=== PATIENT | female | born 1990 | race Caucasian/White ===

== ENCOUNTER 2019-12-04 00:12 | Emergency (ER) | payer SELFPAY ==
[2019-12-04 00:21] VITALS: BP 112/84; PULSE 85; RESP 16; TEMP 36.9; O2SAT 96; BMI 20.5
--- NOTE | 2019-12-04 00:36 | ED_ITS ---
HPI - Headache General: Chief Complaint: Headache Stated Complaint: MIGRAINE Time Seen by Provider: 12/04/19 00:22 History of Present Illness: HPI Narrative: Patient with history of migraine that started his morning. Patient used to have migraines quite often but is been a few years. She had been on propanolol to prevent migraines. She does not take that medication anymore. He is on methadone daily. MD elicited complaint: migraine Pertinent past history: migraines Onset (ago): day(s) Onset description: gradually Location: diffuse Severity: moderate Quality & Timing: aching Exacerbating factors: light and noise Relieving factors: dark room Context: occurred at rest Associated symptoms: Reports nausea and photophobia; Deny chest pain, fever(s) or rash Review of Systems Const: Denies: fever, chills or body aches Eyes: Denies: change in vision or blurry vision ENMT: Denies: throat pain or nasal congestion Card: Denies: chest pain or shortness of breath on exertion Resp: Denies: shortness of breath, productive cough or non-productive cough GI: Reports: nausea Musc: Denies: extremity pain Skin/Breast: Denies: rash Neuro: Reports: headache Psych: Denies: anxiety or depression Mitchel/Lymph: Denies: easy bruising PFSH ED PFSH: Social History Smoking and tobacco status: current every day smoker Female Reproductive History: Date of last menstrual period: 11/06/19 Physical Exam Const: COMMON NORMALS: no apparent distress, average body habitus and oriented x3 HENMT: COMMON NORMALS: normocephalic HEAD & SCALP: normal to inspection and normocephalic FACE & SINUS: normal facial exam Eye: COMMON NORMALS: conjunctivae normal GENERAL EYE: normal appearance of both eyes CONJUNCTIVA: Yes conjunctivae normal DIRECT OPHTHALMOSCOPY: Yes photophobia Neck/C-Spine: COMMON NORMALS: no JVD Chest: COMMONS NORMALS: inspection of chest normal Resp: COMMON NORMALS: normal respiratory effort and clear to auscultation bilaterally AUSCULTATION: clear to auscultation bilaterally Cardio: COMMON NORMALS: no JVD, regular rate and regular rhythm RATE: regular rate RHYTHM: regular rhythm GI: COMMON NORMALS: normal to inspection, nondistended, normoactive bowel sounds Extremity: COMMON NORMALS: normal to inspection and full ROM Neuro: COMMON NORMALS: oriented x3 Course Vital Signs: Vital signs: Vital Signs Temperature 98.4 F 12/04/19 00:21 Pulse Rate 85 12/04/19 00:21 Respiratory Rate 16 12/04/19 00:21 Blood Pressure 112/84 12/04/19 00:21 Pulse Oximetry 96 12/04/19 00:21 MDM - Headache MDM Narrative: Medical decision making narrative: Patient is much better after injections ready go home Discharge Plan Discharge Patient Disposition: Home, Self-Care Clinical Impression: Migraine Qualifiers: Migraine type: without aura Status migrainosus presence: without status migrainosus Intractability: intractable Qualified Code(s): G43.019 - Migraine without aura, intractable, without status migrainosus Condition: Stable Prescriptions: New Imitrex 50 mg tablet See Rx Instructions .ROUTE .COMPLEX Qty: 9 RF: 0 No Action methadone 10 mg/5 mL Solution 20 mg PO Q6H RF: 0 Discharge Orders: Discharge Order (Routine); Ordered 12/04/19 Ordered By: Raul Mehta Referrals: KATINA Villagran, CASH MANAGEMENT ASSOCIATE [Primary Care Provider] - Discharge Diet: Usual diet Discharge Activity: Increase activity as tolerated Patient Instructions: Migraine Headache (ED) Activity Restrictions/Additional Instructions: Follow-up with medical provider as directed. Take medications as prescribed. Return to the ER or your medical provider if condition worsens. Please read and understand discharge instructions. If any questions ask please. Coding Level of Care Code ED Director Of Financial Aid for Kalee Fwd Exam Comprehensive
[2019-12-04] MEDS: SUMAtriptan 6 mg/0.5 mL SDV SUBCUT (00:51)
[2019-12-04] MEDS: promethazine 25 mg/mL SDV 1 mL IM (00:51)
[2019-12-04 01:34] VITALS: BP 132/78; PULSE 68; RESP 16; O2SAT 99
== END 2019-12-04 01:35 | disposition home or self-care (01) ==
PROVIDERS: Emergency Provider Nurse Practitioner Family; PCP Nurse Practitioner Family
DX: G43.019 Migraine without aura, intractable, without status migrainosus (principal); F17.200 Nicotine dependence, unspecified, uncomplicated
CPT/HCPCS: 12345; 96372; 99281; 99283; J2550; J3030

== ENCOUNTER 2020-08-16 15:12 | Emergency (ER) | payer SELFPAY ==
[2020-08-16 15:19] VITALS: BP 157/89; PULSE 82; RESP 16; TEMP 36.4; O2SAT 98; BMI 21.0
--- NOTE | 2020-08-16 16:11 | ED_ITS ---
HPI - Headache General: Chief Complaint: Headache Stated Complaint: Bad Migrain Time Seen by Provider: 08/16/20 15:30 History of Present Illness: HPI Narrative: 21-year-old female presents emergency room with complaint of a migraine. Similar nature to what she has had in the past it is just much more intense. She has used Imitrex in the past with good relief she does not have any now she took some [id number] analgesics with no significant improvement. She has had nausea and photophobia with it MD elicited complaint: migraine Onset (ago): hour(s) Onset description: gradually Location: left Severity: severe Quality & Timing: throbbing Exacerbating factors: light and noise Relieving factors: rest and dark room Context: occurred at rest Associated symptoms: Reports nausea and photophobia; Deny chest pain, confusion, cough, diaphoresis, eye pain, eye redness, fever(s), lightheadedness, loss of vision, malaise, neck stiffness, numbness, paresthesias, pre-syncope, rash, seizures, short of breath, sound sensitivity, syncope, vomiting or weakness Treatments prior to arrival: ibuprofen Review of Systems Const: Denies: fever(s), malaise or diaphoresis ENMT: Denies: throat pain, ear or mastoid pain, nasal discharge or nasal congestion Card: Denies: chest pain, lightheadedness, syncope or pre-syncope Resp: Denies: dyspnea, productive cough or non-productive cough GI: Reports: nausea; Denies: vomiting : Denies: flank pain, difficulty voiding, dysuria, urinary frequency or urinary urgency Skin/Breast: Denies: rash Neuro: Denies: confusion PFS ED PFSH: Social History Smoking and tobacco status: current every day smoker Female Reproductive History: Date of last menstrual period: 08/16/20 Physical Exam Const: COMMON NORMALS: no acute distress GENERAL APPEARANCE: cooperative and comfortable ORIENTATION/CONSCIOUSNESS: Yes awake, Yes oriented to person, Yes oriented to place and Yes oriented to time HENMT: COMMON NORMALS: normocephalic, atraumatic, hearing grossly normal bilaterally, external ears normal, EAC's normal, TM's normal bilaterally, Normal nasal mucous membranes and turbinates present, moist oral mucous membranes and oropharynx normal HEAD & SCALP: normocephalic and atraumatic NOSE: Normal nasal mucous membranes and turbinates present EXTERNAL EAR: Yes external ears normal EXTERNAL AUDITORY CANAL: EAC's normal TYMPANIC MEMBRANE: TM's normal bilaterally Eye: COMMON NORMALS: Equal, round and reactive pupils present, EOMs intact bilaterally, conjunctivae normal and no scleral icterus CONJUNCTIVA: Yes conjunctivae normal PUPIL: Yes Equal, round and reactive pupils present DIRECT OPHTHALMOSCOPY: Yes photophobia Neck/C-Spine: COMMON NORMALS: full ROM, no lymphadenopathy, supple and no JVD Lymph: LYMPHATIC: no lymphadenopathy noted and no lymphedema noted Resp: COMMON NORMALS: normal respiratory effort, No retractions, No use of accessory muscles and clear to auscultation bilaterally AUSCULTATION: clear to auscultation bilaterally Cardio: COMMON NORMALS: no JVD, regular rate, regular rhythm and No murmurs present (Cardio) RATE: regular rate RHYTHM: regular rhythm GI: COMMON NORMALS: Soft to palpation and No hepatosplenomegaly present AUSCULTATION: Yes normoactive bowel sounds PALPATION: Yes Soft to palpation, No Tenderness to palpation present (GI), No Guarding due to palpation present (GI) and Yes No hepatosplenomegaly present Extremity: COMMON NORMALS: normal to inspection, capillary refill normal, no clubbing, cyanosis or edema, no calf tenderness and no pedal edema Neuro: SENSORIUM/ORIENTATION: Yes oriented to person, Yes oriented to place and Yes oriented to time Skin: COMMON NORMALS: no rashes or lesions noted GENERAL SKIN EXAM: no rashes or lesions noted Course Vital Signs: Vital signs: Vital Signs Temperature 97.5 F L 08/16/20 15:19 Pulse Rate 82 08/16/20 15:19 Respiratory Rate 16 08/16/20 15:19 Blood Pressure 157/89 08/16/20 15:19 Pulse Oximetry 98 08/16/20 15:19 MDM - Headache MDM Narrative: Medical decision making narrative: Patient responded to medications given is feeling much better will discharge home gave her Phenergan to use as needed if she has any recurrence of migraine she can return to the emergency room she has no relief or has worsening problems. Discharge Plan Discharge Patient Disposition: Home Clinical Impression: Migraine Condition: Stable Prescriptions: New promethazine 25 mg tablet 25 mg PO Q6H PRN (Reason: prn headaches) Qty: 20 RF: 0 No Action methadone 10 mg Tablet 20 mg PO DAILY@05 RF: 0 ibuprofen 200 mg Tablet 800 mg PO PRN RF: 0 Discharge Orders: Discharge ED (Routine); Ordered 08/16/20 Ordered By: Malcolm Chu Referrals: KATINA Villagran, BRIAR CUTTER [Primary Care Provider] - Discharge Diet: Usual diet Discharge Activity: Increase activity as tolerated Coding Level of Care Code ED Exceptional Student Education Teacher for Kalee Lopez
[2020-08-16] MEDS: promethazine 25 mg/mL SDV 1 mL IM (16:20)
[2020-08-16] MEDS: sodium chloride 0.9% 1,000 ML 999 ML IV (16:20)
[2020-08-16] MEDS: valproic acid inj 500 MG in sodium chloride 0.9% 50 ML 55 MG IV (16:25)
[2020-08-16] MEDS: ketorolac 30 mg/mL INJ IVP (16:25)
[2020-08-16 17:40] VITALS: BP 113/76; PULSE 59; RESP 16; O2SAT 97
== END 2020-08-16 17:51 | disposition home or self-care (01) ==
PROVIDERS: Emergency Provider Family Medicine; PCP Nurse Practitioner Family
DX: G43.909 Migraine, unspecified, not intractable, without status migrainosus (principal); F17.210 Nicotine dependence, cigarettes, uncomplicated
CPT/HCPCS: 12345; 96361; 96365; 96372; 96375; 99282; 99283; J1885; J2550; J7030

== ENCOUNTER 2021-02-07 21:15 | Emergency (ER) | payer SELFPAY ==
[2021-02-07 21:40] VITALS: PULSE 67; RESP 16; TEMP 36.6; O2SAT 95; BMI 21.9
--- NOTE | 2021-02-07 22:04 | W.ED.HA ---
HPI - Headache General: Chief Complaint: Headache Stated Complaint: migraine Time Seen by Provider: 02/07/21 22:00 Source: patient Mode of arrival: ambulatory Limitations: no limitations History of Present Illness: HPI Narrative: 15-year-old female has a long history of migraines. She states she has had a migraine headache that began gradually last night and got much worse today. States headache is currently 9 out of 10. She has had nausea with it. States is worse with bright lights and loud sounds improved in a dark room. This feels just like her previous migraines. Associated symptoms: Deny chest pain, fever(s), nausea, rash or vomiting Review of Systems Const: Denies: fever(s), chills, body aches or change in appetite Eyes: Denies: blurry vision or eye discomfort ENMT: Denies: throat pain or dental pain Card: Denies: chest pain Resp: Denies: dyspnea GI: Denies: abdominal pain, nausea, vomiting or diarrhea : Denies: dysuria Musc: Denies: neck pain or back pain Skin/Breast: Denies: rash Neuro: Reports: headache(s) Psych: Denies: depression Mitchel/Lymph: Denies: easy bruising All/Imm: Denies: urticaria PFSH ED PFSH: Social History Smoking and tobacco status: current every day smoker Female Reproductive History: Date of last menstrual period: 10/11/20 Physical Exam Const: COMMON NORMALS: no acute distress, patient oriented x3 and healthy appearing HENMT: COMMON NORMALS: normocephalic and atraumatic HEAD & SCALP: normocephalic and atraumatic Eye: COMMON NORMALS: Equal, round and reactive pupils present and EOMs intact bilaterally PUPIL: Yes Equal, round and reactive pupils present Neck/C-Spine: COMMON NORMALS: full ROM and supple Chest: COMMONS NORMALS: normal inspection of the chest and normal palpation of entire chest wall Resp: COMMON NORMALS: normal respiratory effort, No retractions, No use of accessory muscles and clear to auscultation bilaterally AUSCULTATION: clear to auscultation bilaterally Cardio: COMMON NORMALS: regular rate, regular rhythm and No murmurs present (Cardio) RATE: regular rate RHYTHM: regular rhythm GI: COMMON NORMALS: Normal to inspection, nondistended, normoactive bowel sounds present, Soft to palpation, non-tender and no masses PALPATION: Yes Soft to palpation Extremity: COMMON NORMALS: normal to inspection and full ROM Neuro: COMMON NORMALS: patient oriented x3, moves all extremities and no focal motor deficits Psych: COMMON NORMALS: mental status grossly normal, Normal thought process present and cooperative THOUGHT PROCESS: Normal thought process present Skin: COMMON NORMALS: no rashes or lesions noted and no wounds GENERAL SKIN EXAM: no rashes or lesions noted Course Vital Signs: Vital signs: Vital Signs Temperature 97.8 F 02/07/21 21:40 Pulse Rate 67 02/07/21 21:40 Respiratory Rate 16 02/07/21 21:40 Pulse Oximetry 95 02/07/21 21:40 MDM - Headache MDM Narrative: Medical decision making narrative: Patient presents here with a migraine headache. Headache is resolved after IV meds. She has no signs of subarachnoid hemorrhage or meningitis. She is stable for discharge and is to follow-up with PCP and return if worsening. Discharge Plan Discharge Patient Disposition: Home Clinical Impression: Migraine Qualifiers: Migraine type: unspecified Status migrainosus presence: without status migrainosus Intractability: not intractable Qualified Code(s): G43.909 - Migraine, unspecified, not intractable, without status migrainosus Condition: Stable Prescriptions: No Action methadone 10 mg Tablet 20 mg PO DAILY@05 RF: 0 ibuprofen 200 mg Tablet 800 mg PO PRN RF: 0 promethazine 25 mg tablet 25 mg PO Q6H PRN (Reason: prn headaches) Qty: 20 RF: 0 Discharge Orders: Discharge ED (Routine); Ordered 02/07/21 Ordered By: Janet Grover Discharge Diet: Advance as tolerated Discharge Activity: Resume usual activity Patient Instructions: Migraine Headache (ED) Coding Level of Care Code ED Plasma Processing Technician for Tedg Fwd Exam Comprehensive
[2021-02-07] MEDS: ketorolac 30 mg/mL INJ IVP (23:04)
[2021-02-07] MEDS: diphenhydrAMINE 50 mg/mL SDV 1mL IVP (23:05)
[2021-02-07] MEDS: metoclopramide 5 mg/mL SDV 2 mL 10 MG IVP (23:05)
[2021-02-08 00:37] VITALS: BP 101/68; PULSE 78; RESP 18; O2SAT 98
== END 2021-02-08 00:39 | disposition home or self-care (01) ==
PROVIDERS: Emergency Provider Emergency Medicine
DX: G43.909 Migraine, unspecified, not intractable, without status migrainosus (principal); F17.210 Nicotine dependence, cigarettes, uncomplicated
CPT/HCPCS: 96374; 96375; 99283; J1200; J1885; J2765

== ENCOUNTER 2021-04-12 11:29 | Emergency (ER) | payer SELFPAY ==
[2021-04-12 11:57] VITALS: BP 114/73; PULSE 62; RESP 17; TEMP 36.9; O2SAT 96
--- NOTE | 2021-04-12 12:14 | W.ED.HA ---
HPI - Headache General: Chief Complaint: Headache Stated Complaint: SEVERE MIGRAINE Time Seen by Provider: 04/12/21 12:12 Source: patient Mode of arrival: ambulatory Limitations: no limitations History of Present Illness: HPI Narrative: Headache x 4 days (hx of migraines) MD elicited complaint: headache Onset description: gradually Location: generalized Severity: similar to previous episodes Quality & Timing: aching Review of Systems General: Reports: 10 or more systems reviewed and unremarkable except in HPI and below Eyes: Reports: photophobia; Denies: change in vision or blurry vision Neuro: Reports: headache(s); Denies: dizziness PFSH ED PFSH: Social History Smoking and tobacco status: current every day smoker Female Reproductive History: Date of last menstrual period: 03/24/21 Physical Exam Const: COMMON NORMALS: no acute distress, patient oriented x3, no limitations and alert GENERAL APPEARANCE: cooperative and comfortable ORIENTATION/CONSCIOUSNESS: Yes awake, Yes oriented to person, Yes oriented to place and Yes oriented to time HENMT: COMMON NORMALS: normocephalic, atraumatic, external ears normal, EAC's normal, TM's normal bilaterally and Normal external nose present HEAD & SCALP: normal to inspection, normocephalic and atraumatic FACE & SINUS: normal facial exam, sinuses nontender and face symmetric NOSE: Normal external nose present, Normal nares present and No nasal discharge present EXTERNAL EAR: Yes external ears normal EXTERNAL AUDITORY CANAL: EAC's normal TYMPANIC MEMBRANE: TM's normal bilaterally MOUTH: Normal oral and palatal mucosa present, lip normal and tongue normal THROAT: posterior oropharynx normal, tonsils normal and uvula midline Eye: COMMON NORMALS: Equal, round and reactive pupils present, EOMs intact bilaterally and conjunctivae normal GENERAL EYE: appearance normal, both eyes and all related structures and normal light reflex EYELID: eyelids normal CONJUNCTIVA: Yes conjunctivae normal PUPIL: Yes Equal, round and reactive pupils present EOM: Yes EOM abnormal DIRECT OPHTHALMOSCOPY: Yes normal light reflex Neck/C-Spine: COMMON NORMALS: full ROM, no lymphadenopathy, supple, no meningeal signs, no JVD and Thyroid normal GENERAL: Yes normal visual inspection THYROID: Thyroid normal CERVICAL SPINE: Yes cervical ROM normal and Yes normal cervical lordosis Lymph: LYMPHATIC: no lymphadenopathy noted Chest: COMMONS NORMALS: normal inspection of the chest and normal palpation of entire chest wall Resp: COMMON NORMALS: normal respiratory effort, No retractions and clear to auscultation bilaterally AUSCULTATION: clear to auscultation bilaterally Cardio: COMMON NORMALS: no JVD, regular rate, regular rhythm, S1 normal heart sound present, S2 normal heart sound present, No gallops present (Cardio), No clicks present (Cardio), No murmurs present (Cardio), No rub (Cardio) and Peripheral pulses 2+ throughout RATE: regular rate RHYTHM: regular rhythm HEART SOUNDS: S1 normal heart sound present and S2 normal heart sound present PERIPHERAL PULSES: Peripheral pulses 2+ throughout GI: COMMON NORMALS: Normal to inspection, nondistended, normoactive bowel sounds present, Soft to palpation, non-tender and no masses PALPATION: Yes Soft to palpation : COMMON NORMALS: Yes no CVA tenderness and Yes normal external appearance BLADDER/KIDNEY EXAM: Yes no CVA tenderness Back/Pelvis: COMMON NORMALS: no CVA tenderness, thoracic and lumbar spine normal to inspection, no thoracic nor lumbar tenderness and thoraco-lumbar ROM normal Extremity: COMMON NORMALS: normal to inspection, full ROM, capillary refill normal, no joint enlargement, no clubbing, cyanosis or edema, no calf tenderness and no pedal edema GENERAL: Yes normal exam except as noted Neuro: COMMON NORMALS: patient oriented x3, moves all extremities, no focal motor deficits, no sensory deficits noted and gait normal SENSORIUM/ORIENTATION: Yes alert, Yes oriented to person, Yes oriented to place and Yes oriented to time MENINGEAL SIGNS: Yes no meningeal signs Psych: COMMON NORMALS: mental status grossly normal, Normal thought process present, cooperative, normal affect, speech normal and activity/motor behavior normal SPEECH: Yes normal speech THOUGHT PROCESS: Normal thought process present Skin: COMMON NORMALS: no rashes or lesions noted, no wounds and turgor normal GENERAL SKIN EXAM: no rashes or lesions noted and turgor normal Course ED course: Pt presents with CENT[place] for the past 4 days. She has a hx of migraines and this feels similar. We will proceed to migraine cocktail. Reevaluation(s): Reevaluation #1: Pt is feeling better. We will proceed with DC. Imitrex will be given script as prophylaxis until she can reestablish a neurologist. Time: 14:01 Vital Signs: Vital signs: Vital Signs Temperature 98.5 F 04/12/21 11:57 Pulse Rate 62 04/12/21 11:57 Respiratory Rate 17 04/12/21 11:57 Blood Pressure 114/73 04/12/21 11:57 Pulse Oximetry 96 04/12/21 11:57 Discharge Plan Discharge Condition: Stable Prescriptions: New sumatriptan succinate [Imitrex] 50 mg tablet 50 mg PO Q2H PRN (Reason: migraine headache) Qty: 20 RF: 0 No Action methadone 10 mg Tablet 20 mg PO DAILY@05 RF: 0 ibuprofen 200 mg Tablet 800 mg PO PRN RF: 0 promethazine 25 mg tablet 25 mg PO Q6H PRN (Reason: prn headaches) Qty: 20 RF: 0 Discharge Orders: Discharge ED (Routine); Ordered 04/12/21 Ordered By: Ankita Anderson Referrals: Tootie Perez MD [Physician] - Discharge Diet: Advance as tolerated Discharge Activity: Resume usual activity Coding Level of Care Code ED Crater And Packer for Chg Fwd Exam Comprehensive
[2021-04-12] MEDS: diphenhydrAMINE 50 mg/mL SDV 1mL 25 MG IVP (12:32)
[2021-04-12] MEDS: dexamethasone 10 mg/mL INJ 6 MG IVP (12:32)
[2021-04-12] MEDS: ondansetron 2 mg/ML SDV 2 mL 4 MG IVP (12:32)
[2021-04-12] MEDS: ketorolac 30 mg/mL INJ 15 MG IVP (12:32)
[2021-04-12] MEDS: sodium chloride 0.9% 500 ML 999 ML IV (12:33)
[2021-04-12 14:15] VITALS: BP 103/62; PULSE 63; O2SAT 94
== END 2021-04-12 14:18 | disposition home or self-care (01) ==
PROVIDERS: Emergency Provider Nurse Practitioner Family
DX: R51.9 Headache, unspecified (principal); Z79.891 Long term (current) use of opiate analgesic; F17.210 Nicotine dependence, cigarettes, uncomplicated
CPT/HCPCS: 96374; 96375; 99283; J1100; J1200; J1885; J2405; J7040

== ENCOUNTER 2021-05-28 04:02 | Emergency (ER) | payer SELFPAY ==
[2021-05-28 04:10] VITALS: BP 124/84; PULSE 74; RESP 16; TEMP 36.9; O2SAT 95; BMI 22.1
[2021-05-28 04:25] VITALS: BP 124/84; PULSE 92; RESP 18; O2SAT 98
--- NOTE | 2021-05-28 04:44 | ED_ITS ---
HPI - General Adult General: Chief complaint: Headache Stated complaint: Migraine Time Seen by Provider: 05/28/21 04:16 History of Present Illness: HPI narrative: HPI: [30]yo patient w hx of migraine headache presenting to the ED with new onset of headache x 2 days. Describes the headache as pulsatile or cramping. Patient reports headache was gradual in onset over 2 hrs and has since been intermittent unremitting and worsening. Headache associated with +N/+V, photophobia, generalized weakness, and inability to concentrate on tasks. Denies fever/chill, hx of immunocompromise, HIV, or transplant. The patient denies any focal neurological weakness, vision blindness, diplopia, or eye pain, hoarseness of voice or facial weakness. The patient has had decreased PO intake since the onset of headache symptoms. No family hx of subarachnoid hemorrhage. Denies recent trauma to the head. Pain is unrelieved with OTC medication, ibuprofen or Tylenol. Per chart review, the patient has had multiple prior ED visits for headache. No complaints of chest pain, shortness of breath, palpitations, light- headedness/vertigo/syncope, abdominal pain, or complaints today. Onset: 2days ago Duration: ongoing Location: home Severity: moderate Review of Systems Narrative: Constitutional: No fever, no chills. HEENT: +blurriness of vision CV: No chest pain, no palpitations PULM: No productive cough, no dyspnea. GI: No abdominal pain, +N/+V/-D. : No Dysuria MSKEL: No muscle pain SKIN: No new rashes, no lesions. NEURO: + headache, no focal weakness. HEME: No visible bruises PSYCH: Normal mood PFSH ED PFSH: Social History Smoking and tobacco status: current every day smoker Female Reproductive History: Date of last menstrual period: 03/24/21 Physical Exam Narrative: EXAM NARRATIVE: Head: Atraumatic Eyes: PERRL, conjunctiva without injection, eyes tracking ENT: Mucous membrane moist NECK: Supple without lymphadenopathy, no nuchal rigidity LUNGS: LCTAB CV: RRR ABDOMEN: Soft, nontender in all quadrants, no guarding or rebound tenderness, no CVA or flank tenderness bilaterally EXTREMITY: Normal ROM SKIN: No rash or erythema through the whole body NEURO: Mental status: A/Ox3 CN II-XII tested and intact. Sensation intact to sharp/dull differentiation in all extremities. Motor: Normal tone and bulk. No abnormal movements appreciated. No pronator drift. Strength tested and 5/5 in bilateral wrist flexion/extension, elbow flexion/extension, shoulder abduction, straight leg raise, knee flexion/extension, ankle dorsiflexion/plantarflexion. Patient ambulates with a steady gait. Coordination: Finger to nose and heel to jo testing intact bilaterally. PSYCH: Cooperative mood and affect Course Vital Signs: Vital signs: Vital Signs Temperature 98.4 F 05/28/21 04:10 Pulse Rate 63 05/28/21 05:49 Respiratory Rate 16 05/28/21 05:49 Blood Pressure 99/59 05/28/21 05:49 Pulse Oximetry 98 05/28/21 05:49 MDM - General Adult MDM Narrative: Medical decision making narrative: [30] yo w/ hx of migranepresents with moderate to severe headache. -Fever, +Nausea/+Vomiting, -Neck pain. -Trauma. Afebrile, HDS stable. No focal neurological symptoms. Neuro exam is non-focal. Pt is nontoxic. Based on history and normal neurological exam I do not suspect for intracranial tumor, intracranial bleed, subdural/epidural hematoma, meningitis or intracranial abscess, encephalopathy or encephalitis, temporal arteritis, glaucoma, CO poisoning. Presentation most likely benign headache. Intervention today: IVF 1L, Reglan 5mg, Benadryl 50mg IV, and Magnesium Sulfate 2g IV, and Prednisone 50mg PO [5:45pm] On reassessment, the patient reports the headache is symptomatically improved with treatment. Neuro exam intact. Patient is able to ambulate and tolerate PO in the ED. Rx: Tylenol and reglan PRN headache Disposition: Discharge home with strict return precautions and instructions for prompt primary care follow up. Given referral for Neurology should any headache recur. Given return instructions for any focal deficit, fever/chill, neck pain or any new or concerning symptoms. Discharge Plan Discharge Patient Disposition: Home Clinical Impression: Migraine, Migraine Condition: Stable Prescriptions: New acetaminophen 500 mg tablet 500 mg PO Q6H PRN (Reason: headache) 5 Days Qty: 20 RF: 0 Reglan 5 mg tablet 5 mg PO DAILY PRN (Reason: nausea and vomiting) 5 Days Qty: 5 RF: 0 No Action methadone 10 mg Tablet 20 mg PO DAILY@05 RF: 0 ibuprofen 200 mg Tablet 800 mg PO PRN RF: 0 promethazine 25 mg tablet 25 mg PO Q6H PRN (Reason: prn headaches) Qty: 20 RF: 0 Imitrex 50 mg tablet 50 mg PO Q2H PRN (Reason: migraine headache) Qty: 20 RF: 0 Discharge Orders: Discharge ED (Routine); Ordered 05/28/21 Ordered By: Chapo Alcantara Discharge Diet: Advance as tolerated Discharge Activity: Resume usual activity Patient Instructions: Headache - Migraine (Adult) Activity Restrictions/Additional Instructions: Come back to the emergency room you have any worsening headache, fever/chills, focal weakness, or any new or concerning complaints. Stand Alone Forms: Work/School Release Coding Level of Care Code ED Manager Animation for Kalee Lopez
[2021-05-28] MEDS: metoclopramide 5 mg/mL SDV 2 mL 10 MG IVP (04:53)
[2021-05-28] MEDS: magnesium sulfate premix 2 GM/50 ML PIGGYBACK IV (04:53)
[2021-05-28] MEDS: acetaminophen 500 mg Tablet PO (04:58)
[2021-05-28] MEDS: sodium chloride 0.9% 1,000 ML 999 ML IV (04:59)
[2021-05-28] MEDS: ketorolac 30 mg/mL INJ IVP (05:17)
[2021-05-28] MEDS: diphenhydrAMINE 50 mg/mL SDV 1mL IVP (05:18)
[2021-05-28] MEDS: predniSONE 20 mg Tablet 60 MG PO (05:18)
[2021-05-28 05:49] VITALS: BP 99/59; PULSE 63; RESP 16; O2SAT 98
== END 2021-05-28 05:52 | disposition home or self-care (01) ==
PROVIDERS: Emergency Provider Emergency Medicine
DX: G43.909 Migraine, unspecified, not intractable, without status migrainosus (principal); Z79.891 Long term (current) use of opiate analgesic; F17.210 Nicotine dependence, cigarettes, uncomplicated
CPT/HCPCS: 96365; 96375; 99283; J1200; J1885; J2765; J3475; J7030; J7512

== ENCOUNTER 2021-08-02 17:50 | Emergency (ER) | payer SELFPAY ==
[2021-08-02 18:22] VITALS: BP 141/70; PULSE 88; RESP 20; TEMP 36.4; O2SAT 100; BMI 21.0
--- NOTE | 2021-08-02 19:16 | W.ED.HA ---
HPI - Headache General: Chief Complaint: Headache Stated Complaint: MIGRAINE, KNOT IN NECK Time Seen by Provider: 08/02/21 18:29 History of Present Illness: HPI Narrative: Patient is a 30 y/o female comes to the ED with migraine. Symptoms started today. Patient has a history of migraines and says this migraine is just like her past migraines. She has currently run out of her Imitrex and is waiting first her Medicaid to go through for her to get a refill on her prescription for Imitrex. She rates her migraine 9 out of 10 and says is located in the frontal part of her head. She endorses having some nausea and vomiting and photophobia today. Denies any neurological symptoms such as vision changes, numbness/tingling to face or extremities or weakness to 1 side of her body. MD elicited complaint: migraine Associated symptoms: Reports nausea and vomiting; Deny chest pain, fever(s) or rash Review of Systems Const: Denies: fever(s), chills or fatigue Eyes: Reports: photophobia; Denies: change in vision or eye discomfort ENMT: Denies: throat pain, odynophagia, nasal discharge or nasal congestion Card: Denies: chest pain, palpitations, edema, swelling of feet/ankles, dyspnea on exertion or orthopnea Resp: Denies: dyspnea, productive cough or non-productive cough GI: Reports: nausea and vomiting; Denies: abdominal pain, diarrhea, constipation or hematochezia : Denies: flank pain, dysuria or hematuria Musc: Denies: neck pain, back pain or extremity swelling Skin/Breast: Denies: rash or new lesions Neuro: Reports: headache(s); Denies: numbness in extremities or weakness in extremities PFSH ED PFSH: Social History Smoking and tobacco status: current every day smoker Female Reproductive History: Date of last menstrual period: 07/18/21 Physical Exam Const: COMMON NORMALS: no acute distress, patient oriented x3, healthy appearing and alert GENERAL APPEARANCE: cooperative and comfortable HENMT: COMMON NORMALS: normocephalic HEAD & SCALP: normocephalic MOUTH: Normal oral and palatal mucosa present THROAT: posterior oropharynx normal and uvula midline Eye: COMMON NORMALS: Equal, round and reactive pupils present, EOMs intact bilaterally and conjunctivae normal CONJUNCTIVA: Yes conjunctivae normal PUPIL: Yes Equal, round and reactive pupils present Neck/C-Spine: COMMON NORMALS: supple GENERAL: Yes normal visual inspection Resp: COMMON NORMALS: normal respiratory effort, No retractions, No use of accessory muscles and clear to auscultation bilaterally AUSCULTATION: clear to auscultation bilaterally Cardio: COMMON NORMALS: regular rate, regular rhythm, S1 normal heart sound present, S2 normal heart sound present, No gallops present (Cardio), No clicks present (Cardio), No murmurs present (Cardio) and Peripheral pulses 2+ throughout RATE: regular rate RHYTHM: regular rhythm HEART SOUNDS: S1 normal heart sound present and S2 normal heart sound present PERIPHERAL PULSES: Peripheral pulses 2+ throughout GI: COMMON NORMALS: Normal to inspection, nondistended, normoactive bowel sounds present, Soft to palpation, non-tender and no masses PALPATION: Yes Soft to palpation : COMMON NORMALS: Yes no CVA tenderness BLADDER/KIDNEY EXAM: Yes no CVA tenderness Back/Pelvis: COMMON NORMALS: no CVA tenderness Extremity: COMMON NORMALS: normal to inspection Neuro: COMMON NORMALS: patient oriented x3, CN's II-XII intact bilaterally and moves all extremities SENSORIUM/ORIENTATION: Yes alert SPEECH: speech normal Skin: GENERAL SKIN EXAM: dry skin Course Reevaluation(s): Reevaluation #1: After patient received IV migraine cocktail her migraine improved from a 9 to a 4 out of 10. Patient says she feels a lot better and ready to go home and rest. Time: 20:25 Vital Signs: Vital signs: Vital Signs Temperature 97.5 F L 08/02/21 18:22 Pulse Rate 88 08/02/21 18:22 Respiratory Rate 20 H 08/02/21 18:22 Blood Pressure 141/70 08/02/21 18:22 Pulse Oximetry 100 08/02/21 18:22 MDM - Headache MDM Narrative: Medical decision making narrative: Patient is a 30-year-old female comes to the ED with a migraine. Patient has chronic migraines and says this migraine is similar to all her previous ones. She is got photophobia, nausea vomiting and she rates her migraine 9 out of 10. Vital stable and exam is benign. IV fluids, Toradol, Decadron, Reglan and Benadryl and her migraine greatly improved. After treatment she rates her migraine a 4 out of 10 is ready to go home and rest. Patient was diagnosed with a migraine discharged home with a prescription for Reglan as needed for nausea. Return to ED precautions given. Follow-up with PCP in 7 to 10 days reevaluation. Patient understood agree with plan. Discharge Plan Discharge Patient Disposition: Home Clinical Impression: Migraine Qualifiers: Migraine type: without aura Status migrainosus presence: without status migrainosus Intractability: not intractable Qualified Code(s): G43.009 - Migraine without aura, not intractable, without status migrainosus Condition: Stable Prescriptions: New Reglan 10 mg tablet 10 mg PO Q6H PRN (Reason: nausea and vomiting) Qty: 12 RF: 0 No Action methadone 10 mg Tablet 20 mg PO DAILY@05 RF: 0 ibuprofen 200 mg Tablet 800 mg PO PRN RF: 0 promethazine 25 mg tablet 25 mg PO Q6H PRN (Reason: prn headaches) Qty: 20 RF: 0 Imitrex 50 mg tablet 50 mg PO Q2H PRN (Reason: migraine headache) Qty: 20 RF: 0 Discharge Orders: Discharge ED (Routine); Ordered 08/02/21 Ordered By: Cedrick Aguilera Discharge Diet: Regular Discharge Activity: Resume usual activity Patient Instructions: Migraine Headache (ED) Coding Level of Care Code ED Telecommunications Sales Representative for Kalee Fwd Exam Comprehensive
[2021-08-02] MEDS: dexamethasone 10 mg/mL INJ IVP (19:38)
[2021-08-02] MEDS: sodium chloride 0.9% 1,000 ML 999 ML IV (19:38)
[2021-08-02] MEDS: metoclopramide 5 mg/mL SDV 2 mL 10 MG IVP (19:38)
[2021-08-02] MEDS: ketorolac 30 mg/mL INJ IVP (19:39)
[2021-08-02] MEDS: diphenhydrAMINE 50 mg/mL SDV 1mL 25 MG IVP (19:39)
== END 2021-08-02 20:37 | disposition home or self-care (01) ==
PROVIDERS: Emergency Provider Physician Assistant
DX: G43.009 Migraine without aura, not intractable, without status migrainosus (principal); F17.210 Nicotine dependence, cigarettes, uncomplicated
CPT/HCPCS: 96361; 96374; 96375; 99284; J1100; J1200; J1885; J2765; J7030

== ENCOUNTER 2021-08-30 23:40 | Emergency (ER) | payer SELFPAY ==
[2021-08-30 23:45] VITALS: BP 132/77; PULSE 72; RESP 16; TEMP 36.8; O2SAT 97; BMI 24.4
--- NOTE | 2021-08-30 23:59 | W.ED.DENTAL ---
HPI - Dental/Oral General: Chief complaint: Dental/Oral Stated complaint: pt said infected teeth Time Seen by Provider: 08/30/21 23:54 Source: patient Mode of arrival: ambulatory Limitations: no limitations History of Present Illness: HPI Narrative: Patient is a 30-year-old female presents to ED today with complaint of dental pain. She states she chronically has very poor dentition. Patient is mainly complaining of pain to her left lower molars. She is treating with OTC Tylenol and Ibuprofen at home. Patient was able to make a dental appointment at [facility] but states this appointment is not for 2 to 3 weeks. She denies any significant facial or neck swelling. No fevers. MD Complaint: tooth pain Onset (ago): day(s) Duration: constant Severity: severe Relieving factors: nothing Exacerbating factors: chewing and cold Context: history of dental caries and poor dental care Associated symptoms: Denies ear or mastoid pain, fever(s) or odynophagia Review of Systems Const: Denies: fever(s), chills, body aches, fatigue or malaise Eyes: Denies: change in vision, blurry vision, photophobia, eye discomfort or eye discharge ENMT: Reports: dental pain; Denies: throat pain, odynophagia, oral sores, ear or mastoid pain, nasal discharge, nasal congestion, post nasal drip or sinus pain Card: Denies: chest pain Resp: Denies: dyspnea GI: Denies: nausea or vomiting Musc: Denies: neck pain Neuro: Denies: headache(s) PFS ED PFSH: Social History Smoking and tobacco status: current every day smoker Female Reproductive History: Date of last menstrual period: 07/18/21 Physical Exam Const: COMMON NORMALS: no acute distress, average body habitus, patient oriented x3, no limitations, healthy appearing, alert and well nourished GENERAL APPEARANCE: cooperative HENMT: COMMON NORMALS: normocephalic, atraumatic and Normal external nose present HEAD & SCALP: normal to inspection, normocephalic and atraumatic FACE & SINUS: normal facial exam and sinuses nontender NOSE: Normal external nose present MOUTH: Normal oral and palatal mucosa present, lip normal and tongue normal TEETH & GINGIVA: Yes other (pt with extensive widespread dental disease) TEETH & GINGIVA IMAGES: 1. severe decay; pain; surrounding gingival swelling; no discernible abscess appreciated THROAT: posterior oropharynx normal, tonsils normal and uvula midline Neck/C-Spine: COMMON NORMALS: full ROM and no lymphadenopathy GENERAL: No anterior neck swelling and No submandibular swelling Resp: COMMON NORMALS: normal respiratory effort Cardio: COMMON NORMALS: regular rate and regular rhythm RATE: regular rate RHYTHM: regular rhythm Neuro: COMMON NORMALS: patient oriented x3 SENSORIUM/ORIENTATION: Yes alert Skin: COMMON NORMALS: no rashes or lesions noted GENERAL SKIN EXAM: no rashes or lesions noted Course Vital Signs: Vital signs: Vital Signs Temperature 98.3 F 08/30/21 23:45 Pulse Rate 72 08/30/21 23:45 Respiratory Rate 16 08/30/21 23:45 Blood Pressure 132/77 08/30/21 23:45 Pulse Oximetry 97 08/30/21 23:45 Discharge Plan Discharge Patient Disposition: Home Clinical Impression: Dental caries Condition: Stable Prescriptions: New Peridex 0.12 % mouthwash 15 ml PO BID Qty: 473 RF: 0 penicillin V potassium 500 mg tablet 500 mg PO Q8H 7 Days Qty: 21 RF: 0 No Action methadone 10 mg Tablet 20 mg PO DAILY@05 RF: 0 ibuprofen 200 mg Tablet 800 mg PO PRN RF: 0 promethazine 25 mg tablet 25 mg PO Q6H PRN (Reason: prn headaches) Qty: 20 RF: 0 Imitrex 50 mg tablet 50 mg PO Q2H PRN (Reason: migraine headache) Qty: 20 RF: 0 Reglan 10 mg tablet 10 mg PO Q6H PRN (Reason: nausea and vomiting) Qty: 12 RF: 0 Discharge Orders: Discharge ED (Routine); Ordered 08/31/21 Ordered By: Britt Thomas Patient Instructions: Dental Caries (Cavities), Dental Abscess (ED), Toothache (ED) Coding Level of Care Code ED Food Checkers And Cashiers Supervisor for Kalee Lopez
[2021-08-31] MEDS: penicillin v potassium 250 mg Tablet 500 MG PO (00:05)
== END 2021-08-31 00:09 | disposition home or self-care (01) ==
PROVIDERS: Emergency Provider Physician Assistant
DX: K02.9 Dental caries, unspecified (principal); F17.200 Nicotine dependence, unspecified, uncomplicated
CPT/HCPCS: 99283

== ENCOUNTER 2021-10-05 16:07 | Emergency (ER) | payer SELFPAY ==
[2021-10-05 16:21] VITALS: BP 114/74; PULSE 84; RESP 16; TEMP 36.6; O2SAT 98; BMI 23.8
--- NOTE | 2021-10-05 16:31 | ED_ITS ---
HPI - Headache General: Chief Complaint: Headache Stated Complaint: Migraine all morning, not feeling well Time Seen by Provider: 10/05/21 16:31 History of Present Illness: Ms. Rodriguez is a 30-year-old lady with history of migraines who presents emergency department due to headache. She reports awaking this morning symptoms including headache on both sides of the head feeling like it is coming from the right side of the eye. The location is slightly atypical for the patient however other symptoms are typical. Light sensitivity, sound sensitivity, nausea vomiting. No significant neck pain with movement or other infectious symptoms. Denies other specific change in health, she has had similar episodes in past. Intensity symptoms is moderate to severe. Course has persisted. No other specific exacerbating relieving factors identified. Not thunderclap and not the worst headache of her life. Patient did present previously for dental caries however subsequently saw dentist and had teeth removed which has improved symptoms, she completed a course of antibiotics. 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 Also ankylosis spondylitis. Pertinent past history: migraines Onset (ago): hour(s) Onset description: gradually Severity: severe Exacerbating factors: light and noise Associated symptoms: Reports nausea and vomiting; Deny confusion, eye pain, eye redness, fever(s), loss of vision, neck stiffness, seizures or syncope Review of Systems General: Reports: 10 or more systems reviewed and unremarkable except in HPI and below Const: Denies: fever(s) Card: Denies: syncope GI: Reports: nausea and vomiting Neuro: Denies: confusion PFSH ED PFSH: Medical History Ankylosing spondylitis Migraines Surgical History History of dilatation and curettage Social History Smoking and tobacco status: current every day smoker Female Reproductive History: Date of last menstrual period: 07/18/21 Physical Exam Const: COMMON NORMALS: patient oriented x3 and alert GENERAL APPEARANCE: cooperative and well developed HENMT: COMMON NORMALS: normocephalic and atraumatic HEAD & SCALP: normocephalic and atraumatic THROAT: posterior oropharynx normal Eye: COMMON NORMALS: conjunctivae normal CONJUNCTIVA: Yes conjunctivae normal SCLERA: sclerae normal Neck/C-Spine: COMMON NORMALS: supple GENERAL: Yes trachea midline Resp: COMMON NORMALS: normal respiratory effort EFFORT & INSPECTION: Yes able to speak in complete sentences Cardio: COMMON NORMALS: regular rate and regular rhythm RATE: regular rate RHYTHM: regular rhythm GI: COMMON NORMALS: Soft to palpation PALPATION: Yes Soft to palpation and No Tenderness to palpation present (GI) PERCUSSION: normal to percussion Extremity: GENERAL: Yes normal exam except as noted and No edema Neuro: COMMON NORMALS: patient oriented x3, CN's II-XII intact bilaterally, moves all extremities, no focal motor deficits and no sensory deficits noted SENSORIUM/ORIENTATION: Yes alert and No Orientation impaired Psych: COMMON NORMALS: mental status grossly normal and Normal thought process present THOUGHT PROCESS: Normal thought process present Course ED course: - Patient was seen and evaluated by me at bedside - Patient placed on cardiac monitors, IV access obtained - Initial evaluation notable for exam as above, no neurologic deficits, no meningitic signs. No red flag symptoms regarding current presentation with history of chronic headaches - Headache treatment ordered - Labs notable for negative hCG - Imaging not felt to be warranted at this time - Upon serial reexamination after treatment the patient was improved with near complete resolution of headache - Based on patient history, evaluation, labs, and imaging as interpreted the most likely cause of the patient's condition is headache possibly related to headache disorder - The results of ED evaluation were discussed with the patient including prescriptions and/or symptomatic cares (if applicable) including appropriate and responsible use, followup plan, and return precautions. The patient verbalized understanding and felt safe for discharge. - Patient discharged in satisfactory condition. Note: Click bubbles or prepopulated antoine in note writing are used for assistance with data collection and billing and are inherently more limited than narrative and other text portions of this note. Please use narrative for additional clinical history and defer to narrative/free test for any case of contradictory information. If information appears in only free text or click bubble it should be considered present or absent as reported. Please contact note specification writer for clarifications of clinical information or contradictory information. MDM is a brief summary, contradictory or erroneous seeming information should be clarified and full note should be reviewed. Vital Signs: Vital signs: Vital Signs Temperature 97.9 F 10/05/21 16:21 Pulse Rate 80 02/12/22 18:51 Respiratory Rate 16 10/05/21 18:51 Blood Pressure 111/72 10/05/21 18:51 Pulse Oximetry 99 10/05/21 18:51 MDM - Headache Medical Decision Making 30-year-old lady with history of headaches presenting with headache. No neurologic deficits or meningitic signs. No other red flag symptoms. Improved significantly with treatment. Patient comfortable with further outpatient management. Medical Records I reviewed the patient's medical records. Lab Data I reviewed the patient's lab results. Laboratory Results HCG, Qual Negative (Negative) 10/05/21 17:15 Urine Color Yellow (Yellow) 10/05/21 17:15 Urine Appearance Clear (CLEAR) 10/05/21 17:15 Urine pH 5 (5-7) 10/05/21 17:15 Ur Specific [place] 1.020 (1.005-1.030) 10/05/21 17:15 Urine Protein Neg (Negative) 10/05/21 17:15 Urine Glucose (UA) Norm (Normal) 10/05/21 17:15 Urine Ketones Negative (Negative) 10/05/21 17:15 Urine Blood Neg (Negative) 10/05/21 17:15 Urine Nitrate Negative (Negative) 10/05/21 17:15 Urine Bilirubin Neg (Negative) 10/05/21 17:15 Urine Urobilinogen 1 mg/dL (Negative) H 10/05/21 17:15 Ur Leukocyte Esterase Negative (Negative) 10/05/21 17:15 Discharge Plan Discharge Patient Disposition: Home Clinical Impression: Migraine Condition: Stable Prescriptions: New Reglan 10 mg tablet 10 mg PO Q6H PRN (Reason: migraine headache) Qty: 4 0RF Rx Instructions: take with benadryl Benadryl 25 mg capsule 25 mg PO QID PRN (Reason: migraine headache) Qty: 4 0RF Rx Instructions: taken with reglan No Action chlorhexidine gluconate [Peridex] 0.12 % mouthwash 15 ml PO BID Qty: 473 0RF Rx Instructions: Swish for 30-60 seconds, then spit. Can do twice daily. methadone 10 mg Tablet 15 mg PO DAILY@05 0RF ibuprofen 200 mg Tablet 800 mg PO DAILY PRN (Reason: Pain) 0RF sumatriptan succinate [Imitrex] 50 mg tablet 50 mg PO Q2H PRN (Reason: migraine headache) Qty: 20 0RF Rx Instructions: do not exceed 4 doses per 24 hrs Imitrex 50 mg tablet 50 mg PO Q2H PRN (Reason: migraine headache) Qty: 7 0RF Rx Instructions: do not exceed 4 doses per 24 hrs Discharge Orders: Discharge ED (Routine); Ordered 10/05/21 Ordered By: Quinn Brandon Discharge Diet: Usual diet Discharge Activity: Resume usual activity Patient Instructions: Acute Headache (ED) Activity Restrictions/Additional Instructions: Thank you for visiting the emergency department. You were seen and evaluated for headache. The exact cause of your symptoms is unclear though likely related to headache disorder. Please follow-up with your primary care provider. Please return to the emergency department for worsening symptoms, confusion, neck pain or stiffness, fevers, inability to tolerate oral intake, any new neurologic deficit, or anything else that you are concerned about and feel needs emergency department evaluation. Coding Level of Care Code ED Rag Baler for Kalee Lopez
[2021-10-05 16:56] VITALS: BP 115/81; PULSE 88; RESP 16; O2SAT 98
[2021-10-05] MEDS: metoclopramide 5 mg/mL SDV 2 mL 10 MG IVP (17:05)
[2021-10-05] MEDS: diphenhydrAMINE 50 mg/mL SDV 1mL 25 MG IVP (17:05)
[2021-10-05] MEDS: sodium chloride 0.9% 1,000 ML 999 ML IV (17:06)
[2021-10-05] MEDS: acetaminophen 1,000 MG/100 ML PIGGYBACK 400 MG IV (17:06)
[2021-10-05 17:24] LABS: Add Urine Microscopic? NO; Charge for UA Resulting for Rev
[2021-10-05 17:31] LABS: HCG Qualitative Urine. Negative (Negative)
[2021-10-05 17:33] LABS: Bilirubin Urine Neg (Negative); Blood Urine Neg (Negative); Glucose Urine UA Norm (Normal); Ketones Urine Negative (Negative); Leukocyte Esterase Urine Negative (Negative); Nitrate Urine Negative (Negative); Protein Urine Neg (Negative); Urine Appearance Clear (CLEAR); Urine Color Yellow (Yellow); Urobilinogen Urine 1 mg/dL (Negative); pH Urine 5 (5-7)
[2021-10-05] MEDS: magnesium sulfate premix 2 GM/50 ML PIGGYBACK IV (17:45)
[2021-10-05 18:40] VITALS: BP 111/72; PULSE 78; RESP 16; O2SAT 99
[2021-10-05 18:51] VITALS: BP 111/72; PULSE 80; RESP 16; O2SAT 99
== END 2021-10-05 19:02 | disposition home or self-care (01) ==
PROVIDERS: Emergency Provider Emergency Medicine
DX: G43.909 Migraine, unspecified, not intractable, without status migrainosus (principal); Z79.891 Long term (current) use of opiate analgesic; F17.210 Nicotine dependence, cigarettes, uncomplicated
CPT/HCPCS: 81003; 81025; 96365; 96375; 99284; J1200; J2765; J3475; J7030

== ENCOUNTER 2021-10-13 13:19 | Emergency (ER) | payer SELFPAY ==
[2021-10-13 13:29] VITALS: BMI 22.8
[2021-10-13 13:31] VITALS: BP 132/81; PULSE 92; RESP 16; TEMP 36.6; O2SAT 96
[2021-10-13] MEDS: sodium chloride 0.9% 1,000 ML 999 ML IV (13:49)
--- NOTE | 2021-10-13 13:49 | ED_ITS ---
HPI - Headache General: Chief Complaint: Headache Stated Complaint: migraine Time Seen by Provider: 10/13/21 13:38 Source: patient Mode of arrival: ambulatory Limitations: no limitations History of Present Illness: 30-year-old female presents to the ER for a migraine today. Patient has a chronic history of migraines. She reports this is similar to her last couple of migraines and the pain is located behind the right eye. Patient reports she is out of Imitrex at home so she did not take any prior to arrival. Patient reports light sensitivity, nausea, vomiting. Patient denies any recent illnesses. Patient denies any other neurological deficits at this time. Denies any numbness or tingling on either side of her body. Patient reports the headache started approximately 12 hours ago and is n ot improving. Pertinent past history: migraines Onset (ago): hour(s) Onset description: suddenly Location: right and retro-orbital Severity: similar to previous episodes Pain scale (0-10): 9 Quality & Timing: aching, throbbing, steady and constant Exacerbating factors: light and noise Relieving factors: nothing Treatments prior to arrival: none Review of Systems General: Reports: 10 or more systems reviewed and unremarkable except in HPI and below Neuro: Reports: headache(s); Denies: numbness in extremities or weakness in extremities PFSH ED PFSH: Medical History Ankylosing spondylitis Migraines Surgical History History of dilatation and curettage Social History Smoking and tobacco status: current every day smoker Female Reproductive History: Date of last menstrual period: 07/18/21 Physical Exam Const: COMMON NORMALS: average body habitus, patient oriented x3, no limitations, healthy appearing, alert and well nourished HENMT: COMMON NORMALS: normocephalic, atraumatic, external ears normal, Normal external nose present, Normal nasal mucous membranes and turbinates present and oropharynx normal HEAD & SCALP: normocephalic and atraumatic NOSE: Normal external nose present and Normal nasal mucous membranes and turbinates present EXTERNAL EAR: Yes external ears normal Neck/C-Spine: COMMON NORMALS: full ROM Resp: COMMON NORMALS: normal respiratory effort and No retractions Cardio: COMMON NORMALS: regular rate and regular rhythm RATE: regular rate RHYTHM: regular rhythm GI: COMMON NORMALS: Normal to inspection, nondistended, normoactive bowel sounds present and Soft to palpation PALPATION: Yes Soft to palpation Extremity: COMMON NORMALS: normal to inspection and full ROM Neuro: COMMON NORMALS: patient oriented x3 SENSORIUM/ORIENTATION: Yes alert Psych: COMMON NORMALS: mental status grossly normal, Normal thought process present and cooperative THOUGHT PROCESS: Normal thought process present Skin: COMMON NORMALS: no rashes or lesions noted GENERAL SKIN EXAM: no rashes or lesions noted Course ED course: 30-year-old female presents to the ER today for migraine. Patient has a history of chronic migraines and this is no different than the last 2 migraine she has had. No imaging necessary at this time as this migraine is not different. Patient did not have medication to take at home. We will go ahead and give patient migraine cocktail in the ER today. Reevaluation(s): Reevaluation #1: Pt reports nausea improved, headache some better. Still some pressure behind R eye. Time: 14:34 Vital Signs: Vital signs: Vital Signs Temperature 98.1 F 10/13/21 15:07 Pulse Rate 71 10/13/21 15:07 Respiratory Rate 18 10/13/21 15:07 Blood Pressure 120/81 10/13/21 15:07 Pulse Oximetry 98 10/13/21 15:07 MDM - Headache Medical Decision Making 30-year-old female presents to the ER today for chronic migraine. Patient is here frequently for this issue. She reports she is out of Imitrex and has not tried anything at home. She reports nausea and vomiting in addition to light sensitivity. Patient given migraine cocktail in the ER. Patient reports her symptoms have improved and rates her pain a 3 out of 10 at this time. Discussed with patient we will refill her Imitrex but she needs to follow-up with her primary care doctor. Return to the ER with new or worsening symptoms. Patient verbalized understanding and is in agreement with the treatment plan. Discharge Plan Discharge Patient Disposition: Home Clinical Impression: Intractable chronic migraine without aura Condition: Stable Prescriptions: New Imitrex 50 mg tablet 50 mg PO Q2H PRN (Reason: migraine headache) Qty: 7 0RF Rx Instructions: do not exceed 4 doses per 24 hrs No Action chlorhexidine gluconate [Peridex] 0.12 % mouthwash 15 ml PO BID Qty: 473 0RF Rx Instructions: Swish for 30-60 seconds, then spit. Can do twice daily. Reglan 10 mg tablet 10 mg PO Q6H PRN (Reason: migraine headache) Qty: 4 0RF Rx Instructions: take with benadryl Benadryl 25 mg capsule 25 mg PO QID PRN (Reason: migraine headache) Qty: 4 0RF Rx Instructions: taken with reglan methadone 10 mg Tablet 15 mg PO DAILY@05 0RF ibuprofen 200 mg Tablet 800 mg PO DAILY PRN (Reason: Pain) 0RF sumatriptan succinate [Imitrex] 50 mg tablet 50 mg PO Q2H PRN (Reason: migraine headache) Qty: 20 0RF Rx Instructions: do not exceed 4 doses per 24 hrs Discharge Orders: Discharge ED (Routine); Ordered 10/13/21 Ordered By: Selam Fall Discharge Diet: Usual diet Discharge Activity: Resume usual activity Patient Instructions: Opioid Safety Activity Restrictions/Additional Instructions: Use Imitrex as prescribed. Alternate Tylenol and Motrin for pain. Follow-up with PCP in 3 to 5 days. Increase fluid intake. Return to the ER with new or worsening symptoms. Coding Level of Care Code ED Analytic Manager for Kalee Lopez Exam Comprehensive
[2021-10-13] MEDS: ketorolac 30 mg/mL INJ 15 MG IVP (13:50)
[2021-10-13] MEDS: diphenhydrAMINE 50 mg/mL SDV 1mL 25 MG IVP (13:50)
[2021-10-13] MEDS: metoclopramide 5 mg/mL SDV 2 mL IVP (13:50)
[2021-10-13 15:00] VITALS: BP 120/81; PULSE 71; RESP 18; TEMP 36.7; O2SAT 98
[2021-10-13 15:07] VITALS: BP 120/81; PULSE 71; RESP 18; TEMP 36.7; O2SAT 98
== END 2021-10-13 15:09 | disposition home or self-care (01) ==
PROVIDERS: Emergency Provider Physician Assistant
DX: G43.719 Chronic migraine without aura, intractable, without status migrainosus (principal); Z79.891 Long term (current) use of opiate analgesic; F17.210 Nicotine dependence, cigarettes, uncomplicated
CPT/HCPCS: 96361; 96374; 96375; 99284; J1200; J1885; J2765; J7030

== ENCOUNTER 2021-10-24 15:51 | Emergency (ER) | payer SELFPAY ==
[2021-10-24 16:43] VITALS: BP 115/78; PULSE 94; RESP 16; TEMP 36.9; O2SAT 96; BMI 22.8
--- NOTE | 2021-10-25 00:15 | XRR_ITS ---
PROCEDURE INFORMATION: Exam: XR Lumbosacral Spine Exam date and time: 10/25/2021 12:15 AM Age: 30 years old Clinical indication: Low back pain; Patient HX: C/O spasms with worsening pain. History of ankylosing spondylitis. TECHNIQUE: Imaging protocol: XR of the lumbosacral spine. Views: 2 or 3 views. COMPARISON: CR Lumbar Spine 2-3 views* [id number] 09/01/2015 4:07 PM FINDINGS: Bones/joints: Normal. No acute fracture. Normal alignment. Soft tissues: Unremarkable. Gastrointestinal tract: Moderate retained feces. Vasculature: One or more calcified pelvic phleboliths. XR/XR lumbar spine 2-3V* [id number] IMPRESSION: No acute findings.
--- NOTE | 2021-10-25 00:15 | XRR_ITS ---
PROCEDURE INFORMATION: Exam: XR Chest Exam date and time: 10/25/2021 12:15 AM Age: 30 years old Clinical indication: Patient HX: Fever. Body aches. TECHNIQUE: Imaging protocol: XR of the chest. Views: 1 view. COMPARISON: CR Chest 1 [place] [id number] 05/25/2019 11:52 PM FINDINGS: Lungs: Unremarkable. No consolidation. Pleural spaces: Unremarkable. No pleural effusion. No pneumothorax. Heart/Mediastinum: Unremarkable. No cardiomegaly. Bones/joints: Levoscoliosis. XR/XR chest 1V portable [id number] IMPRESSION: No acute findings.
--- NOTE | 2021-10-25 00:24 | W.ED.GENADLT ---
HPI - General Adult General: Chief complaint: General Medical Stated complaint: Congestion, dizzy, migraine Time Seen by Provider: 10/25/21 00:13 Source: patient Mode of arrival: ambulatory Limitations: no limitations History of Present Illness: 30-year-old female who states she has had a migraine over the last 2 days. States she gets chronic migraines and this migraine is just not going away she states. States she is also having some body aches and not feeling well she has a history of chronic back pain as well from ankylosing spondylitis states she has been having spasms in her lower back she denies any bowel or bladder incontinence. She denies any IV drug use she states she had a fever 2 days ago her temperature here is 98.5. States she has no PCP here states she cannot sleep due to her migraine headache. Associated symptoms: Reports headache(s); Deny chest pain, dyspnea, nausea, rash or vomiting Review of Systems Const: Denies: fever(s), chills, body aches or change in appetite Eyes: Denies: blurry vision or eye discomfort ENMT: Denies: throat pain or dental pain Card: Denies: chest pain Resp: Denies: dyspnea GI: Denies: abdominal pain, nausea, vomiting or diarrhea : Denies: dysuria Musc: Reports: back pain; Denies: neck pain Skin/Breast: Denies: rash Neuro: Reports: headache(s) Psych: Denies: depression Mitchel/Lymph: Denies: easy bruising All/Imm: Denies: urticaria PFSH ED PFSH: Medical History Ankylosing spondylitis Migraines Surgical History History of dilatation and curettage Social History Smoking and tobacco status: current every day smoker Female Reproductive History: Date of last menstrual period: 07/18/21 Physical Exam Const: COMMON NORMALS: no acute distress, patient oriented x3 and healthy appearing HENMT: COMMON NORMALS: normocephalic and atraumatic HEAD & SCALP: normocephalic and atraumatic Eye: COMMON NORMALS: Equal, round and reactive pupils present and EOMs intact bilaterally PUPIL: Yes Equal, round and reactive pupils present Neck/C-Spine: COMMON NORMALS: full ROM and supple Chest: COMMONS NORMALS: normal inspection of the chest and normal palpation of entire chest wall Resp: COMMON NORMALS: normal respiratory effort, No retractions, No use of accessory muscles and clear to auscultation bilaterally AUSCULTATION: clear to auscultation bilaterally Cardio: COMMON NORMALS: regular rate, regular rhythm and No murmurs present (Cardio) RATE: regular rate RHYTHM: regular rhythm GI: COMMON NORMALS: Normal to inspection, nondistended, normoactive bowel sounds present, Soft to palpation, non-tender and no masses PALPATION: Yes Soft to palpation Back/Pelvis: OTHER: Slight paraspinal lower lumbar tenderness no midline tenderness no saddle anesthesia Extremity: COMMON NORMALS: normal to inspection and full ROM Neuro: COMMON NORMALS: patient oriented x3, moves all extremities and no focal motor deficits Psych: COMMON NORMALS: mental status grossly normal, Normal thought process present and cooperative THOUGHT PROCESS: Normal thought process present Skin: COMMON NORMALS: no rashes or lesions noted and no wounds GENERAL SKIN EXAM: no rashes or lesions noted Course Vital Signs: Vital signs: Vital Signs Temperature 98.5 F 10/24/21 16:43 Pulse Rate 85 10/25/21 01:01 Respiratory Rate 17 10/25/21 01:01 Blood Pressure 130/90 10/25/21 01:01 Pulse Oximetry 96 10/25/21 01:01 [facility] - General Adult Medical Decision Making Patient presents here with headache is likely migraine headache also chronic back pain patient's blood work here is all normal her headache here is resolved with IV meds she is stable for discharge is to follow-up and return if worsening. Lab Data : 10/25/21 00:35 10/25/21 00:35 Laboratory Results WBC 12.0 10^3/uL (4.0-10.0) H 10/25/21 00:35 RBC 4.01 10^6/uL (4.1-5.3) L 10/25/21 00:35 Hgb 11.8 g/dL (11.5-15.3) 10/25/21 00:35 Hct 36.1 % (37.0-47.0) L 10/25/21 00:35 MCV 90.0 fl (81-99) 10/25/21 00:35 MCH 29.4 pg (28.0-34.0) 10/25/21 00:35 MCHC 32.7 g/dL (30.0-36.0) 10/25/21 00:35 RDW 12.8 % (12.1-15.1) 10/25/21 00:35 Plt Count 336 10^3/cmm (130-400) 10/25/21 00:35 MPV 9.3 fL (7.4-10.4) 10/25/21 00:35 Neut % (Auto) 83.1 % 10/25/21 00:35 Lymph % (Auto) 9.9 % 10/25/21 00:35 [place] % (Auto) 6.4 % 10/25/21 00:35 Eos % (Auto) 0.0 % 10/25/21 00:35 Baso % (Auto) 0.2 % 10/25/21 00:35 Neut # (Auto) 9.94 10^3/uL (1.8-7.7) H 10/25/21 00:35 Lymph # (Auto) 1.2 10^3/uL (0.8-4.8) 10/25/21 00:35 Baldwin # (Auto) 0.8 10^3/uL (0.2-0.9) 10/25/21 00:35 Eos # (Auto) 0.0 10^3/uL (0.0-0.8) 10/25/21 00:35 Baso # (Auto) 0.0 10^3/uL (0.0-0.1) 10/25/21 00:35 Nucleated RBC % (auto) 0 % 10/25/21 00:35 Nucleated RBCs # 0.0 /100WBC 10/25/21 00:35 Sodium 138 mmol/L (136-145) 10/25/21 00:35 Potassium 3.4 mmol/L (3.5-5.1) L 10/25/21 00:35 Chloride 103 mmol/L (98-107) 10/25/21 00:35 Carbon Dioxide 23 mmol/L (22-29) 10/25/21 00:35 Anion Gap 15.4 (5-19) 10/25/21 00:35 BUN 9 mg/dL (6-20) 10/25/21 00:35 Creatinine 0.4 mg/dL (0.5-0.9) L 10/25/21 00:35 GFR Calculation 188.7 mL/min (90-130) H 10/25/21 00:35 Glucose 116 mg/dL (65-115) H 10/25/21 00:35 Calculated Osmolality 286 mOsm/kg (285-295) 10/25/21 00:35 Calcium 8.6 mg/dL (8.5-10.5) 10/25/21 00:35 Total Bilirubin 0.2 mg/dL (0.15-1.2) 10/25/21 00:35 AST 18 U/L (0-32) 10/25/21 00:35 ALT 13 U/L (0-33) 10/25/21 00:35 Alkaline Phosphatase 60 IU/L (35-105) 10/25/21 00:35 Total Protein 7.5 g/dL (6.6-8.7) 10/25/21 00:35 Albumin 4.9 g/dL (3.5-5.2) 10/25/21 00:35 Globulin 2.6 g/dL (1.3-4.6) 10/25/21 00:35 HCG, Qual Negative (Negative) 10/25/21 01:03 Urine Color Yellow (Yellow) 10/25/21 01:10 Urine Appearance Clear (CLEAR) 10/25/21 01:10 Urine pH 5 (5-7) 10/25/21 01:10 Ur Specific [place] 1.020 (1.005-1.030) 10/25/21 01:10 Urine Protein Neg (Negative) 10/25/21 01:10 Urine Glucose (UA) Norm (Normal) 10/25/21 01:10 Urine Ketones 1+ (Negative) H 10/25/21 01:10 Urine Blood Neg (Negative) 10/25/21 01:10 Urine Nitrate Negative (Negative) 10/25/21 01:10 Urine Bilirubin Neg (Negative) 10/25/21 01:10 Urine Urobilinogen 1 mg/dL (Negative) H 10/25/21 01:10 Ur Leukocyte Esterase Negative (Negative) 10/25/21 01:10 Discharge Plan Discharge Patient Disposition: Home Clinical Impression: Back pain Migraines Qualifiers: Migraine type: unspecified Status migrainosus presence: without status migrainosus Intractability: not intractable Qualified Code(s): G43.909 - Migraine, unspecified, not intractable, without status migrainosus Condition: Stable Prescriptions: No Action chlorhexidine gluconate [Peridex] 0.12 % mouthwash 15 ml PO BID Qty: 473 0RF Rx Instructions: Swish for 30-60 seconds, then spit. Can do twice daily. Reglan 10 mg tablet 10 mg PO Q6H PRN (Reason: migraine headache) Qty: 4 0RF Rx Instructions: take with benadryl Benadryl 25 mg capsule 25 mg PO QID PRN (Reason: migraine headache) Qty: 4 0RF Rx Instructions: taken with reglan methadone 10 mg Tablet 15 mg PO DAILY@05 0RF ibuprofen 200 mg Tablet 800 mg PO DAILY PRN (Reason: Pain) 0RF sumatriptan succinate [Imitrex] 50 mg tablet 50 mg PO Q2H PRN (Reason: migraine headache) Qty: 20 0RF Rx Instructions: do not exceed 4 doses per 24 hrs Imitrex 50 mg tablet 50 mg PO Q2H PRN (Reason: migraine headache) Qty: 7 0RF Rx Instructions: do not exceed 4 doses per 24 hrs Discharge Orders: Discharge ED (Routine); Ordered 10/25/21 Ordered By: Janet Grover Discharge Diet: Advance as tolerated Discharge Activity: Resume usual activity Patient Instructions: Acute Headache (ED) Coding Level of Care Code ED Embedded Software Test Engineer for Kalee Fwdigna Exam Comprehensive
[2021-10-25] MEDS: metoclopramide 5 mg/mL SDV 2 mL 10 MG IVP (00:35)
[2021-10-25] MEDS: sodium chloride 0.9% 1,000 ML 999 ML IV (00:35)
[2021-10-25] MEDS: ketorolac 30 mg/mL INJ IVP (00:35)
[2021-10-25] MEDS: diphenhydrAMINE 50 mg/mL SDV 1mL IVP (00:35)
[2021-10-25 00:59] LABS: Basophils % 0.2 %; Hematocrit 36.1 % (37.0-47.0); Hemoglobin 11.8 g/dL (11.5-15.3); Lymphocytes # 1.2 10^3/uL (0.8-4.8); Lymphocytes % 9.9 %; Mean Corpuscular HGB Conc 32.7 g/dL (30.0-36.0); Mean Corpuscular Hemoglobin 29.4 pg (28.0-34.0); Mean Platelet Volume 9.3 fL (7.4-10.4); Monocytes # 0.8 10^3/uL (0.2-0.9); Monocytes % 6.4 %; Neutrophils # 9.94 10^3/uL (1.8-7.7); Neutrophils % 83.1 %; Nucleated Red Blood Cells % 0 %; Platelet Count 336 10^3/cmm (130-400); Red Blood Count 4.01 10^6/uL (4.1-5.3); Red Cell Distribution Width 12.8 % (12.1-15.1)
[2021-10-25 01:01] VITALS: BP 130/90; PULSE 85; RESP 17; O2SAT 96
[2021-10-25 01:14] LABS: Alanine Aminotransferase 13 U/L (0-33); Albumin Level 4.9 g/dL (3.5-5.2); Alkaline Phosphatase 60 IU/L (35-105); Anion Gap 15.4 (5-19); Aspartate Amino Transferase 18 U/L (0-32); Blood Urea Nitrogen 9 mg/dL (6-20); Calcium 8.6 mg/dL (8.5-10.5); Carbon Dioxide 23 mmol/L (22-29); Chloride 103 mmol/L (98-107); Globulin 2.6 g/dL (1.3-4.6); Glomerular Filtration Rate 188.7 mL/min (90-130); Glucose 116 mg/dL (65-115); Osmolality Calculated 286 mOsm/kg (285-295); Potassium 3.4 mmol/L (3.5-5.1); Sodium 138 mmol/L (136-145); Total Bilirubin 0.2 mg/dL (0.15-1.2); Total Protein 7.5 g/dL (6.6-8.7)
[2021-10-25 01:17] LABS: Add Urine Microscopic? NO; Charge for UA Resulting for Rev
[2021-10-25 01:22] LABS: Bilirubin Urine Neg (Negative); Blood Urine Neg (Negative); Glucose Urine UA Norm (Normal); Ketones Urine 1+ (Negative); Leukocyte Esterase Urine Negative (Negative); Nitrate Urine Negative (Negative); Protein Urine Neg (Negative); Urine Appearance Clear (CLEAR); Urine Color Yellow (Yellow); Urobilinogen Urine 1 mg/dL (Negative); pH Urine 5 (5-7)
[2021-10-25 01:30] LABS: HCG, Serum Qual Negative (Negative)
[2021-10-25 01:39] VITALS: PULSE 81; RESP 15; O2SAT 100
== END 2021-10-25 02:41 | disposition home or self-care (01) ==
PROVIDERS: Emergency Provider Emergency Medicine
DX: G43.909 Migraine, unspecified, not intractable, without status migrainosus (principal); M54.9 Dorsalgia, unspecified; Z79.891 Long term (current) use of opiate analgesic; F17.210 Nicotine dependence, cigarettes, uncomplicated
CPT/HCPCS: 71045; 72100; 80053; 81003; 84703; 85025; 96361; 96374; 96375; 99284; J1200; J1885; J2765; J7030

== ENCOUNTER 2022-01-13 15:33 | Emergency (ER) | payer SELFPAY ==
[2022-01-13 15:40] VITALS: BP 111/77; PULSE 104; RESP 18; TEMP 36.8; O2SAT 95; BMI 23.8
--- NOTE | 2022-01-13 15:57 | W.ED.HA ---
HPI - Headache General: Chief Complaint: Headache Stated Complaint: vison issues/headache/falling/body weakness Time Seen by Provider: 01/13/22 15:44 Source: patient Mode of arrival: ambulatory Limitations: no limitations History of Present Illness: 31-year-old female has a long history of migraine states she started with a headache that began yesterday morning and is gradually worsened throughout the day. She states she does have photophobia and phonophobia states it feels like her previous migraines to slightly worsen states her pain is currently a 9 out of 10 she denies any fevers. Associated symptoms: Deny chest pain, fever(s), nausea, rash or vomiting Review of Systems Const: Denies: fever(s), chills, body aches or change in appetite Eyes: Denies: blurry vision or eye discomfort ENMT: Denies: throat pain or dental pain Card: Denies: chest pain Resp: Denies: dyspnea GI: Denies: abdominal pain, nausea, vomiting or diarrhea : Denies: dysuria Musc: Denies: neck pain or back pain Skin/Breast: Denies: rash Neuro: Reports: headache(s) and numbness in extremities Psych: Denies: depression Mitchel/Lymph: Denies: easy bruising All/Imm: Denies: urticaria PFSH ED PFSH: Medical History Ankylosing spondylitis Migraines Surgical History History of dilatation and curettage Social History Smoking and tobacco status: current every day smoker Female Reproductive History: Date of last menstrual period: 07/18/21 Physical Exam Const: COMMON NORMALS: no acute distress, patient oriented x3 and healthy appearing HENMT: COMMON NORMALS: normocephalic and atraumatic HEAD & SCALP: normocephalic and atraumatic Eye: COMMON NORMALS: Equal, round and reactive pupils present and EOMs intact bilaterally PUPIL: Yes Equal, round and reactive pupils present Neck/C-Spine: COMMON NORMALS: full ROM and supple Chest: COMMONS NORMALS: normal inspection of the chest and normal palpation of entire chest wall Resp: COMMON NORMALS: normal respiratory effort, No retractions, No use of accessory muscles and clear to auscultation bilaterally AUSCULTATION: clear to auscultation bilaterally Cardio: COMMON NORMALS: regular rate, regular rhythm and No murmurs present (Cardio) RATE: regular rate RHYTHM: regular rhythm GI: COMMON NORMALS: Normal to inspection, nondistended, normoactive bowel sounds present, Soft to palpation, non-tender and no masses PALPATION: Yes Soft to palpation Extremity: COMMON NORMALS: normal to inspection and full ROM Neuro: COMMON NORMALS: patient oriented x3, moves all extremities and no focal motor deficits Psych: COMMON NORMALS: mental status grossly normal, Normal thought process present and cooperative THOUGHT PROCESS: Normal thought process present Skin: COMMON NORMALS: no rashes or lesions noted and no wounds GENERAL SKIN EXAM: no rashes or lesions noted Course Vital Signs: Vital signs: Vital Signs Temperature 98.2 F 01/13/22 15:40 Pulse Rate 104 H 01/13/22 15:40 Respiratory Rate 18 01/13/22 15:40 Blood Pressure 111/77 01/13/22 15:40 Pulse Oximetry 95 01/13/22 15:40 MDM - Headache Medical Decision Making Patient presents here with back pain along with a headache. Her main complaint is her headache she does have a history of migraines and this is similar to her previous migraine she has no signs of meningitis or subarachnoid hemorrhage she feels much improved here after treatment did check urinalysis to rule out kidney infection it is negative x-ray of her back is normal she does have some tenderness to left lower lumbar likely muscular no signs of epidural abscess that she is not an IV drug user she is to follow-up with her PCP and return if worsening she understands and agrees to plan. Lab Data Laboratory Results HCG, Qual Negative (Negative) 01/13/22 16:49 Urine Color Michelle (Yellow) 01/13/22 16:49 Urine Appearance Sl hazy (CLEAR) 01/13/22 16:49 Urine pH 5 (5-7) 01/13/22 16:49 Ur Specific [place] 1.015 (1.005-1.030) 01/13/22 16:49 Urine Protein Neg (Negative) 01/13/22 16:49 Urine Glucose (UA) Norm (Normal) 01/13/22 16:49 Urine Ketones Negative (Negative) 01/13/22 16:49 Urine Blood Neg (Negative) 01/13/22 16:49 Urine Nitrate Negative (Negative) 01/13/22 16:49 Urine Bilirubin Neg (Negative) 01/13/22 16:49 Urine Urobilinogen 1 mg/dL (Negative) H 01/13/22 16:49 Ur Leukocyte Esterase Negative (Negative) 01/13/22 16:49 Discharge Plan Discharge Patient Disposition: Home Clinical Impression: Migraine, Back pain Condition: Stable Prescriptions: New methocarbamol 750 mg tablet 750 mg PO Q6H PRN (Reason: spasms) Qty: 20 0RF Naprosyn 500 mg tablet 500 mg PO BID PRN (Reason: pain) Qty: 20 0RF No Action ibuprofen 200 mg Tablet 800 mg PO DAILY PRN (Reason: Pain) 0RF Discharge Orders: Discharge ED (Routine); Ordered 01/13/22 Ordered By: Janet Grover Discharge Diet: Advance as tolerated Discharge Activity: Resume usual activity Patient Instructions: Migraine Headache (ED) Coding Level of Care Code ED Drying Frame Operator for Kalee Fwd Exam Comprehensive
[2022-01-13] MEDS: sodium chloride 0.9% 1,000 ML 999 ML IV (15:58)
[2022-01-13] MEDS: metoclopramide 5 mg/mL SDV 2 mL 10 MG IVP (16:01)
[2022-01-13] MEDS: diphenhydrAMINE 50 mg/mL SDV 1mL IVP (16:01)
[2022-01-13] MEDS: ketorolac 30 mg/mL INJ 15 MG IVP (16:03)
--- NOTE | 2022-01-13 16:44 | XRR_ITS ---
PROCEDURE INFORMATION: Exam: XR Lumbosacral Spine Exam date and time: 01/13/2022 5:03 PM Age: 31 years old Clinical indication: Low back pain TECHNIQUE: Imaging protocol: XR of the lumbosacral spine. Views: 2 or 3 views. COMPARISON: CR XR lumbar spine 2-3V* [id number] 10/25/2021 12:47 AM FINDINGS: Bones/joints: Normal. No acute fracture. Normal alignment. Soft tissues: Unremarkable. XR/XR lumbar spine 2-3V* [id number] IMPRESSION: No acute findings.
[2022-01-13 17:01] LABS: Add Urine Microscopic? NO; Charge for UA Resulting for Rev
[2022-01-13 17:04] LABS: Blood Urine Neg (Negative); Glucose Urine UA Norm (Normal); HCG Qualitative Urine. Negative (Negative); Ketones Urine Negative (Negative); Protein Urine Neg (Negative); Specific Gravity, Urine 1.015 (1.005-1.030); Urine Appearance SL Hazy (CLEAR); Urine Color Amber (Yellow); pH Urine 5 (5-7)
[2022-01-13 17:05] LABS: Bilirubin Urine Neg (Negative); Leukocyte Esterase Urine Negative (Negative); Nitrate Urine Negative (Negative); Urobilinogen Urine 1 mg/dL (Negative)
[2022-01-13 17:12] VITALS: RESP 16; O2SAT 93
[2022-01-13] MEDS: morphine 4 mg/mL SDV 1 mL IVP (17:12)
[2022-01-13 17:39] VITALS: BP 125/80; PULSE 79; RESP 14; O2SAT 96
== END 2022-01-13 17:40 | disposition home or self-care (01) ==
PROVIDERS: Emergency Provider Emergency Medicine
DX: G43.909 Migraine, unspecified, not intractable, without status migrainosus (principal)
CPT/HCPCS: 72100; 81003; 81025; 96361; 96374; 96375; 99284; J1200; J1885; J2270; J2765; J7030

== ENCOUNTER 2023-05-26 18:43 | Emergency (ER) | payer SELFPAY ==
[2023-05-26 18:44] VITALS: BP 153/96; PULSE 78; RESP 18; TEMP 36.8; O2SAT 99; BMI 25.6
--- NOTE | 2023-05-26 19:53 | W.ED.DENTAL ---
HPI - Dental/Oral General: Chief complaint: Dental/Oral Stated complaint: dental pain Time Seen by Provider: 05/26/23 19:48 Source: patient Mode of arrival: ambulatory Limitations: no limitations History of Present Illness: 32-year-old female states she had right lower dental pain over the last 2 days states she does have a broken tooth on that side she had some swelling and pain especially the eating. Denies any difficulty swallowing denies any vomiting or fevers Associated symptoms: Denies fever(s) Review of Systems Const: Denies: fever(s) or chills ENMT: Reports: dental pain; Denies: throat pain Card: Denies: chest pain Resp: Denies: dyspnea GI: Reports: nausea; Denies: abdominal pain, vomiting or diarrhea Musc: Denies: neck pain or back pain Skin/Breast: Denies: rash Neuro: Denies: headache(s) PFS ED PFSH: Medical History Ankylosing spondylitis Migraines Psychiatric care Surgical History History of dilatation and curettage Social History Smoking and tobacco status: current every day smoker Physical Exam Const: COMMON NORMALS: no acute distress and patient oriented x3 HENMT: COMMON NORMALS: normocephalic and atraumatic HEAD & SCALP: normocephalic and atraumatic OTHER: Tenderness over right lower molar with some swelling no obvious abscess or trismus Eye: COMMON NORMALS: conjunctivae normal CONJUNCTIVA: Yes conjunctivae normal Neck/C-Spine: COMMON NORMALS: supple Chest: COMMONS NORMALS: normal inspection of the chest Resp: COMMON NORMALS: normal respiratory effort Extremity: COMMON NORMALS: normal to inspection Neuro: COMMON NORMALS: patient oriented x3 Psych: COMMON NORMALS: mental status grossly normal Skin: COMMON NORMALS: no rashes or lesions noted GENERAL SKIN EXAM: no rashes or lesions noted Procedures Nerve Block Nerve Block 1: Time out performed: Yes Local Anesthetic: bupivacaine 0.5% Amount of anesthesia used (mL): 10 Side: left and right Intraoral Nerve Block: inferior alveolar Procedure Successful: Yes Patient Tolerated Procedure: well Complications: none Course Vital Signs: Vital signs: Vital Signs Temperature 98.3 F 05/26/23 18:44 Pulse Rate 78 05/26/23 18:44 Respiratory Rate 18 05/26/23 18:44 Blood Pressure 153/96 05/26/23 18:44 Pulse Oximetry 99 05/26/23 18:44 Oxygen Delivery Me thod Room Air 05/26/23 18:44 MDM - Dental/Oral Medical Decision Making Patient presents with dental pain right lower molar does have some erythema will place on antibiotics did do a nerve block in the ER she is to follow-up with a dentist. Medical Records I reviewed the patient's medical records. No radiology studies performed this visit Discharge Plan Discharge Patient Disposition: Home Clinical Impression: Toothache Condition: Stable Prescriptions: New hydrocodone-acetaminophen 5-325 mg tablet 1 tab PO Q6H PRN (Reason: pain) Qty: 8 0RF cephalexin 500 mg capsule 500 mg PO TID 7 Days Qty: 21 0RF naproxen [Naprosyn] 500 mg tablet 500 mg PO BID PRN (Reason: pain) Qty: 20 0RF No Action methadone [Methadose] 40 mg tablet,soluble 85 mg PO DAILY fluoxetine [Prozac] 20 mg capsule 20 mg PO DAILY Qty: 30 0RF fluoxetine 40 mg capsule 40 mg PO DAILY Qty: 30 0RF Rx Instructions: Start after 1 month on 20 mg. ibuprofen 200 mg Tablet 800 mg PO DAILY PRN (Reason: Pain) methocarbamol 750 mg tablet 750 mg PO Q6H PRN (Reason: spasms) Qty: 20 0RF Naprosyn 500 mg tablet 500 mg PO BID PRN (Reason: pain) Qty: 20 0RF Discharge Orders: Discharge ED (Routine); Ordered 05/26/23 Ordered By: Janet Grover Discharge Diet: Advance as tolerated Discharge Activity: Resume usual activity Patient Instructions: Toothache (ED), Opioid Safety Coding Level of Care Code ED Nuclear Equipment Operator for Kalee Lopez
== END 2023-05-26 20:10 | disposition home or self-care (01) ==
PROVIDERS: Emergency Provider Emergency Medicine
DX: K08.89 Other specified disorders of teeth and supporting structures (principal); M84.48XA Pathological fracture, other site, initial encounter for fracture; Z79.891 Long term (current) use of opiate analgesic; F17.210 Nicotine dependence, cigarettes, uncomplicated
CPT/HCPCS: 64400; 99284

== ENCOUNTER 2023-05-27 02:23 | Emergency (ER) | payer SELFPAY ==
--- NOTE | 2023-05-27 02:25 | ED_ITS ---
HPI - Dental/Oral General: Chief complaint: Dental/Oral Stated complaint: Tooth pain Time Seen by Provider: 05/27/23 02:24 Source: patient Mode of arrival: ambulatory Limitations: no limitations History of Present Illness: 32-year-old female states she had right lower molar pain over the last 2 days she was seen here earlier today had a dental block states that her cheek was numb but she did not get all the numbness from her tooth still having some pain she denies any fevers denies any difficulty swallowing she has no trismus she denies any worsening proving factors. Associated symptoms: Denies fever(s) Review of Systems Const: Denies: fever(s) or chills ENMT: Reports: dental pain; Denies: throat pain Card: Denies: chest pain Resp: Denies: dyspnea GI: Denies: abdominal pain, nausea, vomiting or diarrhea Musc: Denies: neck pain or back pain Skin/Breast: Denies: rash Neuro: Denies: headache(s) PFSH ED PFSH: Medical History Ankylosing spondylitis Migraines Psychiatric care Surgical History History of dilatation and curettage Social History Smoking and tobacco status: current every day smoker Physical Exam Const: COMMON NORMALS: no acute distress and patient oriented x3 HENMT: COMMON NORMALS: normocephalic and atraumatic HEAD & SCALP: normocephalic and atraumatic OTHER: Tenderness over right lower molar some slight swelling no obvious abscess no trismus Eye: COMMON NORMALS: conjunctivae normal CONJUNCTIVA: Yes conjunctivae normal Neck/C-Spine: COMMON NORMALS: supple Chest: COMMONS NORMALS: normal inspection of the chest Resp: COMMON NORMALS: normal respiratory effort Extremity: COMMON NORMALS: normal to inspection Neuro: COMMON NORMALS: patient oriented x3 Psych: COMMON NORMALS: mental status grossly normal Skin: COMMON NORMALS: no rashes or lesions noted GENERAL SKIN EXAM: no rashes or lesions noted Procedures Nerve Block Nerve Block 1: Time out performed: Yes Local Anesthetic: bupivacaine 0.5% Amount of anesthesia used (mL): 8 Side: right Intraoral Nerve Block: inferior alveolar Procedure Successful: Yes Patient Tolerated Procedure: well Complications: none Course Vital Signs: Vital signs: Vital Signs Temperature 98.0 F 05/27/23 02:27 Pulse Rate 76 05/27/23 02:27 Respiratory Rate 16 05/27/23 02:27 Blood Pressure 152/104 05/27/23 02:27 Pulse Oximetry 98 05/27/23 02:27 Oxygen Delivery Me thod Room Air 05/27/23 02:27 MDM - Dental/Oral Medical Decision Making Patient presents with dental pain she has no signs of abscess or trismus did perform another dental block she is having some more relief of pain this time we will send her home with a hydrocodone gave her Keflex she is states she is going to follow-up with a dentist tomorrow. Return if worsening. Medical Records I reviewed the patient's medical records. No radiology studies performed this visit Discharge Plan Discharge Patient Disposition: Home Clinical Impression: Toothache Condition: Stable Prescriptions: No Action methadone [Methadose] 40 mg tablet,soluble 85 mg PO DAILY fluoxetine [Prozac] 20 mg capsule 20 mg PO DAILY Qty: 30 0RF fluoxetine 40 mg capsule 40 mg PO DAILY Qty: 30 0RF Rx Instructions: Start after 1 month on 20 mg. ibuprofen 200 mg Tablet 800 mg PO DAILY PRN (Reason: Pain) methocarbamol 750 mg tablet 750 mg PO Q6H PRN (Reason: spasms) Qty: 20 0RF Naprosyn 500 mg tablet 500 mg PO BID PRN (Reason: pain) Qty: 20 0RF hydrocodone-acetaminophen 5-325 mg tablet 1 tab PO Q6H PRN (Reason: pain) Qty: 8 0RF cephalexin 500 mg capsule 500 mg PO TID 7 Days Qty: 21 0RF Naprosyn 500 mg tablet 500 mg PO BID PRN (Reason: pain) Qty: 20 0RF Discharge Orders: Discharge ED (Routine); Ordered 05/27/23 Ordered By: Janet Grover Discharge Diet: Advance as tolerated Discharge Activity: Resume usual activity Patient Instructions: Toothache (ED) Coding Level of Care Code ED Aluminum Siding Mechanic for Kalee Lopez
[2023-05-27 02:27] VITALS: BP 152/104; PULSE 76; RESP 16; TEMP 36.7; O2SAT 98; BMI 25.6
[2023-05-27] MEDS: ketorolac 60 mg/2 mL INJ IM (02:42)
[2023-05-27] MEDS: cephALEXin 500 mg Capsule PO (02:44)
[2023-05-27] MEDS: BUPivacaine 0.5% INJ 10 mL INJECTION ×2 (02:45)
[2023-05-27] MEDS: HYDROcodone-acetaminophen 5-325 mg Tablet 1 TAB PO (03:09)
[2023-05-27 03:12] VITALS: BP 122/76; PULSE 70; RESP 18; O2SAT 94
== END 2023-05-27 03:15 | disposition home or self-care (01) ==
PROVIDERS: Emergency Provider Emergency Medicine
DX: K08.89 Other specified disorders of teeth and supporting structures (principal); Z79.891 Long term (current) use of opiate analgesic; F17.210 Nicotine dependence, cigarettes, uncomplicated
CPT/HCPCS: 64400; 96372; 99284; J1885; J3490

== ENCOUNTER 2023-08-04 04:59 | Emergency (ER) | payer SELFPAY ==
[2023-08-04] VITALS (15 sets, daily range): BP systolic 114–136; BP diastolic 67–82; PULSE 84–101; RESP 16; TEMP 37.2; O2SAT 91–100; BMI 24.7
--- NOTE | 2023-08-04 05:16 | W.ED.HA ---
HPI - Headache General: Chief Complaint: Headache Stated Complaint: syncope,back pain, n/v Time Seen by Provider: 08/04/23 05:15 PFSH ED PFSH: Medical History Ankylosing spondylitis Migraines Psychiatric care Surgical History History of dilatation and curettage Social History Smoking and tobacco/nicotine status: current every day tobacco/nicotine user Female Reproductive History: Date of last menstrual period: 08/04/23 Course Vital Signs: Vital signs: Vital Signs Temperature 98.9 F 08/04/23 05:08 Pulse Rate 101 H 08/04/23 05:08 Respiratory Rate 16 08/04/23 05:08 Blood Pressure 124/73 08/04/23 05:08 Pulse Oximetry 99 08/04/23 05:08 Oxygen Delivery Me thod Room Air 08/04/23 05:08 Discharge Plan Discharge Condition: Stable Prescriptions: No Action methadone [Methadose] 40 mg tablet,soluble 85 mg PO DAILY fluoxetine [Prozac] 40 mg capsule 80 mg PO DAILY Qty: 60 2RF Coding Level of Care Code ED Community Health Director for Kalee Lopez
--- NOTE | 2023-08-04 06:17 | ED_ITS ---
HPI - Headache 2 General: Chief Complaint: Headache Stated Complaint: syncope,back pain, n/v Time Seen by Provider: 08/04/23 05:15 Source: patient Mode of arrival: ambulatory History of Present Illness: 32-year-old female presents to the emerg ency room with complaint of headaches and generalized myalgias. Shortly after arrival here she felt like she had to go to the restroom and defecate several times, was nearly an hour after she was roomed before we could actually see her because she had been in and out of the restroom multiple times. She also has some frequency of urination and severe nausea although she has not vomited yet. She denies any diarrhea she has had particularly back pain and headache. She denies fever she has had a slight cough. This began 2 days ago. MD elicited complaint: headache Onset (ago): day(s) (2) Onset description: gradually Exacerbating factors: none Relieving factors: nothing Associated symptoms: Reports nausea and weakness; Deny chest pain, confusion, cough, diaphoresis, eye pain, eye redness, fever(s), lightheadedness, loss of vision, malaise, neck stiffness, numbness, paresthesias, photophobia, pre-syncope, rash, seizures, short of breath, sound sensitivity, syncope or vomiting Review of Systems 2 Const: Denies: fever(s), malaise or diaphoresis Card: Denies: chest pain, lightheadedness, syncope or pre-syncope Resp: Denies: dyspnea GI: Reports: nausea; Denies: vomiting : Denies: dysuria, urinary frequency or urinary urgency Musc: Denies: neck pain or back pain Skin/Breast: Denies: rash Neuro: Denies: confusion PFSH ED 2 PFSH: Medical History Psychiatric care Ankylosing spondylitis Migraines Surgical History History of dilatation and curettage Social History Smoking and tobacco/nicotine status: current every day tobacco/nicotine user Female Reproductive History: Date of last menstrual period: 08/04/23 Physical Exam 2 Const: COMMON NORMALS: no acute distress GENERAL APPEARANCE: cooperative and comfortable ORIENTATION/CONSCIOUSNESS: Yes awake, Yes oriented to person, Yes oriented to place and Yes oriented to time HENMT: COMMON NORMALS: normocephalic, atraumatic and hearing grossly normal bilaterally HEAD & SCALP: normocephalic and atraumatic Eye: DIRECT OPHTHALMOSCOPY: No photophobia Resp: COMMON NORMALS: normal respiratory effort, No retractions, No use of accessory muscles and clear to auscultation bilaterally AUSCULTATION: clear to auscultation bilaterally Cardio: COMMON NORMALS: regular rate, regular rhythm and No murmurs present (Cardio) RATE: regular rate RHYTHM: regular rhythm GI: COMMON NORMALS: Soft to palpation and No hepatosplenomegaly present A USCULTATION: Yes normoactive bowel sounds PALPATION: Yes Soft to palpation, No Tenderness to palpation present (GI), No Guarding due to palpation present (GI) and Yes No hepatosplenomegaly present Extremity: COMMON NORMALS: normal to inspection, capillary refill normal, no clubbing, cyanosis or edema, no calf tenderness and no pedal edema Neuro: SENSORIUM/ORIENTATION: Yes oriented to person, Yes oriented to place and Yes oriented to time Skin: COMMON NORMALS: no rashes or lesions noted GENERAL SKIN EXAM: no rashes or lesions noted Course 2 Vital Signs: Vital signs: Vital Signs Temperature 98.9 F 08/04/23 05:08 Pulse Rate 84 08/04/23 06:38 Respiratory Rate 16 08/04/23 06:38 Blood Pressure 117/67 08/04/23 08:00 Pulse Oximetry 99 08/04/23 08:00 Oxygen Delivery Me thod Room Air 08/04/23 07:15 MDM - Headache Medical Decision Making Based on her symptom presentation and her lab work suspect she may have COVID. She has a history of ankylosing spondylitis which will likely be aggravated by the myalgias frequently associated with COVID. Will discharge patient home give her prednisone tizanidine and diclofenac to use as needed for relief of her back pain will contact her with the final results of COVID test and call in Forsythlovid if appropriate. Medical Records I reviewed the patient's medical records. Lab Data I reviewed the patient's lab results. 08/04/23 06:25 08/04/23 06:25 Laboratory Results WBC 4.47 10^3/uL (3.29-11.43) 08/04/23 06:25 RBC 4.09 10^6/uL (3.85-5.65) 08/04/23 06:25 Hgb 12.20 g/dL (11.27-16.99) 08/04/23 06:25 Hct 36.5 % (36-47) 08/04/23 06:25 MCV 89.2 fl (85-98) 08/04/23 06:25 MCH 29.8 pg (27-33) 08/04/23 06:25 MCHC 33.4 g/dL (30-55) 08/04/23 06:25 RDW 12.8 % (12.1-15.1) 08/04/23 06:25 Plt Count 260 10^3/cmm (157-399) 08/04/23 06:25 MPV 8.1 fL (7.4-10.4) 08/04/23 06:25 Neut % (Auto) 83.8 % 08/04/23 06:25 Lymph % (Auto) 6.5 % 08/04/23 06:25 [place] % (Auto) 8.7 % 08/04/23 06:25 Eos % (Auto) 0.2 % 08/04/23 06:25 Baso % (Auto) 0.4 % 08/04/23 06:25 Neut # (Auto) 3.74 10^3/uL (1.8-7.7) 08/04/23 06:25 Lymph # (Auto) 0.3 10^3/uL (0.8-4.8) L 08/04/23 06:25 [place] # (Auto) 0.4 10^3/uL (0.2-0.9) 08/04/23 06:25 Eos # (Auto) 0.0 10^3/uL (0.0-0.8) 08/04/23 06:25 Baso # (Auto) 0.0 10^3/uL (0.0-0.1) 08/04/23 06:25 Nucleated RBC % (auto) 0 % 08/04/23 06:25 Nucleated RBCs # 0.0 /100WBC 08/04/23 06:25 Sodium 137 mmol/L (136-145) 08/04/23 06:25 Potassium 3.5 mmol/L (3.5-5.1) 08/04/23 06:25 Chloride 100 mmol/L (98-107) 08/04/23 06:25 Carbon Dioxide 22 mmol/L (22-29) 08/04/23 06:25 Anion Gap 18.5 (5-19) 08/04/23 06:25 BUN 9 mg/dL (6-20) 08/04/23 06:25 Creatinine 0.8 mg/dL (0.5-0.9) 08/04/23 06:25 GFR Calculation 83.7 mL/min (90-130) L 08/04/23 06:25 Glucose 102 mg/dL (65-115) 08/04/23 06:25 Calculated Osmolality 283 mOsm/kg (285-295) L 08/04/23 06:25 Calcium 9.1 mg/dL (8.5-10.5) 08/04/23 06:25 Total Bilirubin 0.2 mg/dL (0.15-1.2) 08/04/23 06:25 AST 15 U/L (0-32) 08/04/23 06:25 ALT 9 U/L (0-33) 08/04/23 06:25 Alkaline Phosphatase 68 U/L (35-105) 08/04/23 06:25 Total Protein 7.5 g/dL (6.6-8.7) 08/04/23 06:25 Albumin 4.7 g/dL (3.5-5.2) 08/04/23 06:25 Globulin 2.8 g/dL (1.3-4.6) 08/04/23 06:25 HCG, Qual Negative (Negative) 08/04/23 07:15 Urine Color Yellow (Yellow) 08/04/23 07:15 Urine Appearance Cloudy (CLEAR) A 08/04/23 07:15 Urine pH 5 (5-7) 08/04/23 07:15 Ur Specific [place] 1.015 (1.005-1.030) 08/04/23 07:15 Urine Protein Neg (Negative) 08/04/23 07:15 Urine Glucose (UA) Norm (Normal) 08/04/23 07:15 Urine Ketones 2+ (Negative) H 08/04/23 07:15 Urine Blood 3+ (Negative) H 08/04/23 07:15 Urine Nitrate Negative (Negative) 08/04/23 07:15 Urine Bilirubin Neg (Negative) 08/04/23 07:15 Urine Urobilinogen 1 mg/dL (Negative) H 08/04/23 07:15 Ur Leukocyte Esterase Trace (Negative) H 08/04/23 07:15 Urine RBC 5-10 /hpf (0-2) H 08/04/23 07:15 Urine WBC 0-4 /hpf (0-5) H 08/04/23 07:15 Ur Squamous Epith Cells 5-10 /hpf (0-5) H 08/04/23 07:15 Calcium Oxalate Crystal >100 /hpf H 08/04/23 07:15 Amorphous Sediment Not Reportable 08/04/23 07:15 Urine Bacteria 1+ /hpf (NONE) H 08/04/23 07:15 Urine Mucus 1+ /hpf 08/04/23 07:15 No radiology studies performed this visit Discharge Plan Discharge Patient Disposition: Home Clinical Impression: Suspected 2019 novel coronavirus infection, Ankylosing spondylitis Condition: Stable Prescriptions: New tizanidine 4 mg tablet 4 mg PO Q6H PRN (Reason: muscle spasticity) Qty: 20 0RF Rx Instructions: do not exceed 3 doses per 24 hrs prednisone 20 mg tablet 20 mg PO TID Qty: 15 0RF Rx Instructions: 1 p.o. 3 times daily x3 days, 1 p.o. twice daily x2 days, 1 p.o. daily x2 days diclofenac sodium 75 mg tablet,delayed release (DR/EC) 75 mg PO Q12H PRN (Reason: pain) Qty: 20 0RF No Action methadone [Methadose] 40 mg tablet,soluble 85 mg PO DAILY fluoxetine [Prozac] 40 mg capsule 80 mg PO DAILY Qty: 60 2RF Discharge Orders: Discharge ED (Routine); Ordered 08/04/23 Ordered By: Malcolm Chu Discharge Diet: Usual diet Discharge Activity: Increase activity as tolerated Patient Instructions: Opioid Safety, Pain Management Activity Restrictions/Additional Instructions: Thank you for choosing [facility] for your healthcare needs today. Please realize this is an emergency room and that we are providing you with a medical screening exam and this may not be complete and all inclusive of all the testing and or work up that you may need to determine your ailment or severity of your illness. It is very important that you follow up as instructed or that you return to the Emergency Department should you have concerns or if your condition changes or worsens in any way. You are seen today with complaints of back pain. Based on your labs and your other history is given suspect you do have COVID-19. Because of your history of ankylosing spondylitis it is not surprising that you get increased pain in the back associated with the myalgias is often seen with COVID. You were given diclofenac prednisone and tizanidine to use for treatment of your back pain. You are given a IM dose of dexamethasone today start the oral prednisone tomorrow. Will contact you with the final COVID results when it returns. If it is positive you will be given for Paxlovid which we can call in the pharmacy of your choice. 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
[2023-08-04 06:33] LABS: Basophils % 0.4 %; Eosinophils % 0.2 %; Hematocrit 36.5 % (36-47); Lymphocytes # 0.3 10^3/uL (0.8-4.8); Lymphocytes % 6.5 %; Mean Corpuscular HGB Conc 33.4 g/dL (30-55); Mean Corpuscular Hemoglobin 29.8 pg (27-33); Mean Corpuscular Volume 89.2 fl (85-98); Mean Platelet Volume 8.1 fL (7.4-10.4); Monocytes # 0.4 10^3/uL (0.2-0.9); Monocytes % 8.7 %; Neutrophils # 3.74 10^3/uL (1.8-7.7); Neutrophils % 83.8 %; Nucleated Red Blood Cells % 0 %; Platelet Count 260 10^3/cmm (157-399); Red Blood Count 4.09 10^6/uL (3.85-5.65); Red Cell Distribution Width 12.8 % (12.1-15.1); White Blood Count 4.47 10^3/uL (3.29-11.43)
[2023-08-04] MEDS: sodium chloride 0.9% 1,000 ML 999 ML IV ×2 (06:34→07:18)
[2023-08-04] MEDS: ondansetron 2 mg/ML SDV 2 mL 4 MG IVP (06:34)
[2023-08-04] MEDS: orphenadrine 30 mg/mL Inj 2 mL 60 MG IVP (06:37)
[2023-08-04] MEDS: ketorolac 30 mg/mL INJ IVP (06:37)
--- NOTE | 2023-08-04 06:38 | XR_ITS ---
WS: [id number] Exam: XR chest 1V portable [id number] Date/Time of Exam: 08/04/2023 6:51 AM Reason For Exam: dyspnea/cough Exam: XR chest 1V portable [id number] Date/Time of Exam: 08/04/2023 6:51 AM Reason For Exam: dyspnea/cough Comparison 10/25/2021. Findings: The lungs are clear and fully expanded. Costophrenic angles are sharp. No infiltrates. Bronchovascula r relief appears normal. Cardiac silhouette is unremarkable. Bony elements are intact. IMPRESSION: Unremarkable chest radiograph.
[2023-08-04 06:50] LABS: Alanine Aminotransferase 9 U/L (0-33); Albumin Level 4.7 g/dL (3.5-5.2); Alkaline Phosphatase 68 U/L (35-105); Anion Gap 18.5 (5-19); Aspartate Amino Transferase 15 U/L (0-32); Blood Urea Nitrogen 9 mg/dL (6-20); Calcium 9.1 mg/dL (8.5-10.5); Carbon Dioxide 22 mmol/L (22-29); Chloride 100 mmol/L (98-107); Globulin 2.8 g/dL (1.3-4.6); Glomerular Filtration Rate 83.7 mL/min (90-130); Glucose 102 mg/dL (65-115); Osmolality Calculated 283 mOsm/kg (285-295); Potassium 3.5 mmol/L (3.5-5.1); Sodium 137 mmol/L (136-145); Total Bilirubin 0.2 mg/dL (0.15-1.2); Total Protein 7.5 g/dL (6.6-8.7)
[2023-08-04 07:28] LABS: HCG Qualitative Urine. Negative (Negative)
[2023-08-04 07:29] LABS: Bilirubin Urine Neg (Negative); Blood Urine 3+ (Negative); Glucose Urine UA Norm (Normal); Ketones Urine 2+ (Negative); Leukocyte Esterase Urine Trace (Negative); Nitrate Urine Negative (Negative); Protein Urine Neg (Negative); Specific Gravity, Urine 1.015 (1.005-1.030); Urine Appearance Cloudy (CLEAR); Urine Color Yellow (Yellow); Urobilinogen Urine 1 mg/dL (Negative); pH Urine 5 (5-7)
[2023-08-04 07:40] LABS: Add Urine Culture? No; Bacteria Urine 1+ /hpf; Calcium Oxalate Crystals Urine >100 /hpf; Mucus Urine 1+ /hpf; WBC Urine 0-4 /hpf (0-5)
[2023-08-04] MEDS: acetaminophen 500 mg Tablet 1000 MG PO (07:42)
[2023-08-04 08:18] LABS: Adenovirus Not Detected (NOT DETECT); Chlamydia Pneumoniae Not Detected (NOT DETECT); Coronavirus 229E,HKU1,NL63,OC4 Not Detected (NOT DETECT); Human Metapneumovirus Not Detected (NOT DETECT); Human Rhinovirus/Enterovirus Not Detected (NOT DETECT); Influenza A Not Detected (NOT DETECT); Influenza A H1 Not Detected (NOT DETECT); Influenza A H1-2009 Not Detected (NOT DETECT); Influenza A H3 Not Detected (NOT DETECT); Influenza B Not Detected (NOT DETECT); Mycoplasma Pneumoniae Not Detected (NOT DETECT); Parainfluenza Virus Type 1 Not Detected (NOT DETECT); Parainfluenza Virus Type 2 Not Detected (NOT DETECT); Parainfluenza Virus Type 3 Not Detected (NOT DETECT); Parainfluenza Virus Type 4 Not Detected (NOT DETECT); Respiratory Syncytial Virus A Not Detected (NOT DETECT); Respiratory Syncytial Virus B Not Detected (NOT DETECT)
[2023-08-04 08:24] LABS: SARS-COV-2 Detected (NOT DETECT)
[2023-08-04] MEDS: dexamethasone 10 mg/mL INJ IVP (08:24)
--- NOTE | 2023-08-04 09:25 | PC.NURSE ---
phone call attempt, no answer no voicemail to inform pt paxlovid has interaction with home med and pharmacy will not fill, physician is aware and advised pt need to hold paxlovid.
== END 2023-08-04 08:36 | disposition home or self-care (01) ==
PROVIDERS: Internal Medicine; Emergency Provider Family Medicine
DX: U07.1 COVID-19 (principal); M45.9 Ankylosing spondylitis of unspecified sites in spine; Z72.0 Tobacco use
CPT/HCPCS: 71045; 80053; 81001; 81025; 85025; 87635; 96361; 96374; 96375; 99284; J1100; J1885; J2360; J2405; J7030

== ENCOUNTER 2023-08-11 03:24 | Emergency (ER) | payer SELFPAY ==
[2023-08-11 03:35] VITALS: BP 152/104; PULSE 73; RESP 17; TEMP 36.7; O2SAT 96; BMI 32.9
--- NOTE | 2023-08-11 04:03 | ED_ITS ---
HPI - Headache General: Chief Complaint: Headache Stated Complaint: migraine,n/v Time Seen by Provider: 08/11/23 03:40 History of Present Illness: 32-year-old female presents to the emerg ency department complaints of a migraine headache. She states that the headache is a frontal pounding type headache that is a 9 out of 10 at present. She does have associated nausea with a single episode of vomiting. She states that nothing seems to make the headache better and nothing seems to make it worse. She states she has not taken any medication at home at present. She states that she has not had a fevers chills or night sweats. She states that she does not have nuchal rigidity and no signs of meningitis. She denies recent injury or trauma. Associated symptoms: Reports nausea and vomiting Review of Systems General: Reports: 10 or more systems reviewed and unremarkable except in HPI and below GI: Reports: nausea and vomiting Neuro: Reports: headache(s) PFSH ED PFSH: Medical History Psychiatric care Ankylosing spondylitis Migraines Surgical History History of dilatation and curettage Social History Smoking and tobacco/nicotine status: current every day tobacco/nicotine user Physical Exam Narrative: EXAM NARRATIVE: Constitutional: the patient appears well nourished and with normal development. Vital signs reviewed as documented. HENMT: Normocephalic, atraumatic. Extermal ears with normal appearance without drainage. Nose without drainage, normal appearance. Mucus membranes moist. Neck is supple, No jugular venous distension, trachea is midline, no appreciable carotid bruits. No lymphadenopathy. No meningeal signs. Flexion, extension and lateral rotation is without pain. Eyes: Pupils are equal, round, reactive to light and accommodation. No scleral icterus. Extra-ocular movement are intact. Thorax is symmetrical and with equal rise and fall with respirations. Resp: Lungs are clear to auscultation. No wheezes, rales, crackles or ronchi at present. Cardio: Regular rate and rhythm. Positive S1, S2. No appreciable murmurs, rubs or gallops. GI: Abdominal exam reveals normal bowel sounds to all quadrants. No organomegaly. No obvious palpable masses noted. No hepatomegally appreciated. Soft, nontender to palpation. Extremity: Extremities are non-edematous and both femoral and pedal pulses are 2+ and equal bilaterally. Moves all extremities well, sensation in all extremities. Neuro: Alert and oriented x4, person, place, time and situation. Cranial nerves II through XII are grossly intact, there is no focal neurological deficits that I can appreciate at present. Motor strength in the upper and lower extremities are equal and bilateral 5/5. Psych: Cooperative, calm, normal thought process, appropriate judgment. Skin: No lesions, rashes. No gross abnormalities noted. Back: Symmetrical, no obvious deformity, No CVA tenderness Course Reevaluation(s): Reevaluation #1: Patient states after receiving pain medication she has significant improvement in control of her headache. I will discharge home with recommended follow-up with her PCP. Time: 05:25 Vital Signs: Vital signs: Vital Signs Temperature 98.1 F 08/11/23 03:35 Pulse Rate 72 08/11/23 05:35 Respiratory Rate 16 08/11/23 05:00 Blood Pressure 101/76 08/11/23 05:35 Pulse Oximetry 100 08/11/23 05:35 Oxygen Delivery Me thod Room Air 08/11/23 05:00 MDM - Headache Medical Decision Making Physical exam completed and documented, I will provide the patient IV fluid rehydration as well as pain medication and antinausea medication and reevaluate. No radiology studies performed this visit Discharge Plan Discharge Patient Disposition: Home Clinical Impression: Migraine Condition: Stable Prescriptions: No Action methadone [Methadose] 40 mg tablet,soluble 85 mg PO DAILY fluoxetine [Prozac] 40 mg capsule 80 mg PO DAILY Qty: 60 2RF tizanidine 4 mg tablet 4 mg PO Q6H PRN (Reason: muscle spasticity) Qty: 20 0RF Rx Instructions: do not exceed 3 doses per 24 hrs prednisone 20 mg tablet 20 mg PO TID Qty: 15 0RF Rx Instructions: 1 p.o. 3 times daily x3 days, 1 p.o. twice daily x2 days, 1 p.o. daily x2 days diclofenac sodium 75 mg tablet,delayed release (DR/EC) 75 mg PO Q12H PRN (Reason: pain) Qty: 20 0RF Paxlovid 300 mg (150 mg x 2)-100 mg tablets,dose pack See Rx Instructions .ROUTE .COMPLEX Qty: 30 0RF Rx Instructions: orally per package directions Discharge Orders: Discharge ED (Routine); Ordered 08/11/23 Ordered By: Ryan Horner Discharge Diet: Advance as tolerated Discharge Activity: Resume usual activity Patient Instructions: Opioid Safety, Pain Management Activity Restrictions/Additional Instructions: Activity Restrictions/Additional Instructions: Thank you for choosing [facility] for your healthcare needs today. Please realize that you were seen in the Emergency Department and that we are providing you with an emergency medical screening exam and this may not be a complete and all inclusive of all the testing and or medical work-up that you may need to determine your ailment or severity of your illness. It is very important that you follow-up as instructed with your Primary care provider or Specialist for additional evaluation and to discuss your medical treatment plan. You may return to the Emergency Department should you have concerns or if your condition changes or worsens in any way. Coding Level of Care Code ED Blending Machine Feeder for Kalee Lopez
[2023-08-11 04:10] VITALS: PULSE 82; O2SAT 95
[2023-08-11] MEDS: prochlorperazine 10 mg/2 mL Inj IVP (04:17)
[2023-08-11] MEDS: ketorolac 30 mg/mL INJ IVP (04:17)
[2023-08-11] MEDS: diphenhydrAMINE 50 mg/mL SDV 1mL IM (04:18)
[2023-08-11 05:00] VITALS: PULSE 71; RESP 16; O2SAT 100
--- NOTE | 2023-08-11 05:28 | PC.NURSE ---
pt rounding pt sleeping at this time.
[2023-08-11 05:35] VITALS: BP 101/76; PULSE 72; O2SAT 100
== END 2023-08-11 05:37 | disposition home or self-care (01) ==
PROVIDERS: Emergency Provider Internal Medicine
DX: G43.909 Migraine, unspecified, not intractable, without status migrainosus (principal); Z79.891 Long term (current) use of opiate analgesic; Z72.0 Tobacco use
CPT/HCPCS: 96372; 96374; 96375; 99284; J0780; J1200; J1885

== ENCOUNTER 2023-10-21 14:55 | Emergency (ER) | payer SELFPAY ==
[2023-10-21 15:11] VITALS: BP 129/96; PULSE 74; TEMP 36.7; O2SAT 97; BMI 30.2
--- NOTE | 2023-10-21 16:22 | ED_ITS ---
HPI - Dental/Oral General: Chief complaint: Dental/Oral Stated complaint: left side face swollen Time Seen by Provider: 10/21/23 15:58 History of Present Illness: 32-year-old female comes in today for co mplaints of left facial swelling. Patient reports pain in the dentition of her left upper jaw. Patient appears nontoxic. Patient appears in no acute distress. Patient is managing secretions well. Review of Systems General: Reports: 10 or more systems reviewed and unremarkable except in HPI and below PFSH ED PFSH: Medical History Psychiatric care Ankylosing spondylitis Migraines Surgical History History of dilatation and curettage Social History Smoking and tobacco/nicotine status: current every day tobacco/nicotine user Physical Exam Const: COMMON NORMALS: alert HENMT: COMMON NORMALS: normocephalic HEAD & SCALP: normocephalic FACE & SINUS: other (Patient swelling left cheek) MOUTH: other (Dental abscess noted to the left upper anterior gingiva) Eye: GENERAL EYE: appearance normal, both eyes and all related structures Neck/C-Spine: COMMON NORMALS: full ROM Resp: COMMON NORMALS: normal respiratory effort and clear to auscultation bilaterally AUSCULTATION: clear to auscultation bilaterally Cardio: COMMON NORMALS: regular rate and regular rhythm RATE: regular rate RHYTHM: regular rhythm Back/Pelvis: COMMON NORMALS: thoracic and lumbar spine normal to inspection Extremity: COMMON NORMALS: normal to inspection Neuro: SENSORIUM/ORIENTATION: Yes alert Skin: COMMON NORMALS: turgor normal GENERAL SKIN EXAM: turgor normal Course Vital Signs: Vital signs: Vital Signs Temperature 98.0 F 10/21/23 15:11 Pulse Rate 74 10/21/23 15:11 Blood Pressure 129/96 10/21/23 15:11 Pulse Oximetry 97 10/21/23 15:11 Oxygen Delivery Me thod Room Air 10/21/23 15:11 MDM - Dental/Oral Medical Decision Making 32-year-old female comes in today with left facial swelling. On exam patient has tenderness to the left facial cheek. Noticeable dental abscesses noted above the left lateral incisor. Posterior pharynx is normal. Skin is warm and dry. No significant redness or induration is noted to the facial cheek. Differential diagnosis includes dental caries, dental abscess, cellulitis of the face, tonsillar abscess. No signs of serious illness or injury is noted. Patient be started on clindamycin 300 mg 3 times a day for next 7 days. Patient was given a dose of dexamethasone and some hydrocodone for pain. Patient reports understanding of care plan need for follow-up with dentist for definitive care. No radiology studies performed this visit Discharge Plan Discharge Patient Disposition: Home Clinical Impression: Dental abscess Condition: Stable Prescriptions: New clindamycin HCl 300 mg capsule 300 mg PO BID 7 Days Qty: 14 0RF hydrocodone-acetaminophen 5-325 mg tablet 1 tab PO Q6H PRN (Reason: pain (scale score 7-10)) Qty: 10 0RF No Action methadone [Methadose] 40 mg tablet,soluble 85 mg PO DAILY fluoxetine [Prozac] 40 mg capsule 80 mg PO DAILY Qty: 60 2RF tizanidine 4 mg tablet 4 mg PO Q6H PRN (Reason: muscle spasticity) Qty: 20 0RF Rx Instructions: do not exceed 3 doses per 24 hrs prednisone 20 mg tablet 20 mg PO TID Qty: 15 0RF Rx Instructions: 1 p.o. 3 times daily x3 days, 1 p.o. twice daily x2 days, 1 p.o. daily x2 days diclofenac sodium 75 mg tablet,delayed release (DR/EC) 75 mg PO Q12H PRN (Reason: pain) Qty: 20 0RF Paxlovid 300 mg (150 mg x 2)-100 mg tablets,dose pack See Rx Instructions .ROUTE .COMPLEX Qty: 30 0RF Rx Instructions: orally per package directions Discharge Orders: Discharge ED (Routine); Ordered 10/21/23 Ordered By: Jaun Rebolledo Discharge Diet: Usual diet Discharge Activity: Increase activity as tolerated Patient Instructions: Dental Abscess (ED) Activity Restrictions/Additional Instructions: Home and rest. Take antibiotic as directed. Use pain medication hydrocodone for severe pain. Use acetaminophen and ibuprofen for control of pain. Use ice for further pain relief. Follow-up with primary care for further instructions. Return to ED for new concerns. 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
[2023-10-21] MEDS: clindamycin 150 mg Capsule 300 MG PO (16:45)
[2023-10-21] MEDS: dexamethasone 10 mg/mL INJ IM (16:45)
[2023-10-21] MEDS: HYDROcodone-acetaminophen 5-325 mg Tablet 1 TAB PO (16:45)
[2023-10-21] MEDS: ketorolac 30 mg/mL INJ IM (16:45)
== END 2023-10-21 17:12 | disposition home or self-care (01) ==
PROVIDERS: Emergency Provider Nurse Practitioner Family
DX: K04.7 Periapical abscess without sinus (principal); Z79.891 Long term (current) use of opiate analgesic; Z72.0 Tobacco use
CPT/HCPCS: 96372; 99284; J1100; J1885

== ENCOUNTER 2023-11-02 20:08 | Emergency (ER) | payer SELFPAY ==
--- NOTE | 2023-11-02 20:11 | ECG_ITS ---
[facility] Test Date: 2023-11-02 Pat Name: Laurel Rodriguez Department: Room: Gender: Female Consumer Relations Complaint Clerk: : 1990 Requested By: Bulmaro Glynn Order Number: [id number] Danuta MD: Jennifer Lombardi M.D. Measurements Intervals [place] Rate: 89 P: 55 OR: 144 QRS: 70 QRSD: 81 T: 76 QT: 314 QTc: 384 Interpretive Statements SINUS RHYTHM WITH SINUS ARRHYTHMIA NONSPECIFIC ST & T-WAVE ABNORMALITY Compared to ECG 05/25/2019 23:38:33 T-wave abnormality now present Electronically Signed On 11-03-2023 23:00:26 CDT by Jennifer Lombardi M.D. [email or web address]
--- NOTE | 2023-11-02 20:15 | XRR_ITS ---
PROCEDURE INFORMATION: Exam: XR Chest Exam date and time: 11/02/2023 8:33 PM Age: 32 years old Clinical indication: Pain; Chest pressure; Additional info: Chest pain, difficulty breathing TECHNIQUE: Imaging protocol: Radiologic exam of the chest. Views: 1 view. COMPARISON: CR XR chest 1V portable [id number] 08/04/2023 7:01 AM FINDINGS: Lungs: Unremarkable. No consolidation. Pleural spaces: Unremarkable. No pleural effusion. No pneumothorax. Heart/Mediastinum: Unremarkable. No cardiomegaly. Bones/joints: Unremarkable. XR/XR chest 1V portable [id number] IMPRESSION: No acute findings.
[2023-11-02 20:16] VITALS: BP 120/74; PULSE 96; RESP 20; TEMP 36.7; O2SAT 97
[2023-11-02 21:03] LABS: Basophils % 0.5 %; Eosinophils # 0.1 10^3/uL (0.0-0.8); Eosinophils % 1.1 %; Hematocrit 36.1 % (36-47); Lymphocytes # 2.3 10^3/uL (0.8-4.8); Lymphocytes % 42.4 %; Mean Corpuscular HGB Conc 32.4 g/dL (30-55); Mean Corpuscular Volume 89.6 fl (85-98); Monocytes # 0.2 10^3/uL (0.2-0.9); Monocytes % 3.3 %; Neutrophils # 2.89 10^3/uL (1.8-7.7); Neutrophils % 52.5 %; Nucleated Red Blood Cells % 0 %; Platelet Count 330 10^3/cmm (157-399); Red Blood Count 4.03 10^6/uL (3.85-5.65); Red Cell Distribution Width 12.7 % (12.1-15.1)
--- NOTE | 2023-11-02 21:24 | ED_ITS ---
HPI - Chest Pain 2 General: Chief Complaint: Chest Pain Stated Complaint: CP,Migrane Time Seen by Provider: 11/02/23 21:10 History of Present Illness: 32-year-old female presents emergency de partment with complaints of migraine headache that is a 10 out of 10. She states this is very similar to her previous migraine headaches. She states that she woke up this morning with the migraine and has continued to persist and worsen throughout the day. She states that she also feels like she has some chest tightness/heaviness because of her migraine headache. She denies neck pain or stiffness. She denies fevers chills or night sweats. She denies shortness of breath. She does endorse light sensitivity and nausea. Associated symptoms: Reports nausea Review of Systems 2 General: Reports: 10 or more systems reviewed and unremarkable except in HPI and below GI: Reports: nausea Neuro: Reports: headache(s) PFS ED 2 PFSH: Medical History Psychiatric care Ankylosing spondylitis Migraines Surgical History History of dilatation and curettage Social History Smoking and tobacco/nicotine status: current every day tobacco/nicotine user Physical Exam 2 Narrative: EXAM NARRATIVE: Constitutional: the patient appears well nourished and with normal development. Vital signs reviewed as documented. HENMT: Normocephalic, atraumatic. External ears normal appearance without drainage. Nose without drainage, normal appearance. Mucus membranes moist. Neck is supple, No jugular venous distension, trachea is midline, no appreciable carotid bruits. No lymphadenopathy. No meningeal signs. Flexion, extension and lateral rotation is without pain. Eyes: Pupils are equal, round, reactive to light and accommodation. No scleral icterus. Extra-ocular movement are intact. Thorax is symmetrical and with equal rise and fall with respirations. Resp: Lungs are clear to auscultation. No wheezes, rales, crackles or ronchi at present. Cardio: Regular rate and rhythm. Positive S1, S2. No appreciable murmurs, rubs or gallops. GI: Abdominal exam reveals normal bowel sounds to all quadrants. No organomegaly. No obvious palpable masses noted. No hepatomegally appreciated. Soft, non-tender to palpation. Extremity: Extremities are non-edematous and both femoral and pedal pulses are 2+ and equal bilaterally. Moves all extremities well, sensation in all extremities. Neuro: Alert and oriented x4, person, place, time and situation. Cranial nerves II through XII are grossly intact, there is no focal neurological deficits that I can appreciate at present. Sensation intact to all extremities. 2-point discrimination intact. Light touch intact to all extremities. Motor strength in the upper and lower extremities are equal and bilateral 5/5. Psych: Cooperative, calm, normal thought process, appropriate judgment. Skin: No lesions, rashes. No gross abnormalities noted. Back: Symmetrical, no obvious deformity, No CVA tenderness Course 2 Vital Signs: Vital signs: Vital Signs Temperature 98.1 F 11/02/23 20:16 Pulse Rate 96 11/02/23 20:16 Respiratory Rate 20 H 11/02/23 20:16 Blood Pressure 120/74 11/02/23 20:16 Pulse Oximetry 97 11/02/23 20:16 MDM - Chest Pain Medical Decision Making Physical exam completed and documented, CBC, CMP cardiac enzymes twelve-lead EKG and chest x-ray without acute findings. I have provided the patient medication for her migraine headache and reevaluation states significant improvement in control of her migraine headache. I will have her follow-up with her primary care provider. Medical Records I reviewed the patient's medical records. Lab Data I reviewed the patient's lab results. 11/02/23 20:59 11/02/23 20:59 Radiology Impressions Chest X-Ray 11/02/23 20:15 IMPRESSION: No acute findings. Laboratory Results WBC 5.50 10^3/uL (3.29-11.43) 11/02/23 20:59 RBC 4.03 10^6/uL (3.85-5.65) 11/02/23 20:59 Hgb 11.70 g/dL (11.27-16.99) 11/02/23 20:59 Hct 36.1 % (36-47) 11/02/23 20:59 MCV 89.6 fl (85-98) 11/02/23 20:59 MCH 29.0 pg (27-33) 11/02/23 20:59 MCHC 32.4 g/dL (30-55) 11/02/23 20:59 RDW 12.7 % (12.1-15.1) 11/02/23 20:59 Plt Count 330 10^3/cmm (157-399) 11/02/23 20:59 MPV 8.0 fL (7.4-10.4) 11/02/23 20:59 Neut % (Auto) 52.5 % 11/02/23 20:59 Lymph % (Auto) 42.4 % 11/02/23 20:59 Slope % (Auto) 3.3 % 11/02/23 20:59 Eos % (Auto) 1.1 % 11/02/23 20:59 Baso % (Auto) 0.5 % 11/02/23 20:59 Neut # (Auto) 2.89 10^3/uL (1.8-7.7) 11/02/23 20:59 Lymph # (Auto) 2.3 10^3/uL (0.8-4.8) 11/02/23 20:59 Slope # (Auto) 0.2 10^3/uL (0.2-0.9) 11/02/23 20:59 Eos # (Auto) 0.1 10^3/uL (0.0-0.8) 11/02/23 20:59 Baso # (Auto) 0.0 10^3/uL (0.0-0.1) 11/02/23 20:59 Nucleated RBC % (auto) 0 % 11/02/23 20:59 Nucleated RBCs # 0.0 /100WBC 11/02/23 20:59 Sodium 140 mmol/L (136-145) 11/02/23 20:59 Potassium 4.0 mmol/L (3.5-5.1) 11/02/23 20:59 Chloride 104 mmol/L (98-107) 11/02/23 20:59 Carbon Dioxide 26 mmol/L (22-29) 11/02/23 20:59 Anion Gap 14.0 (5-19) 11/02/23 20:59 BUN 8 mg/dL (6-20) 11/02/23 20:59 Creatinine 0.7 mg/dL (0.5-0.9) 11/02/23 20:59 GFR Calculation 97.6 mL/min (90-130) 11/02/23 20:59 Glucose 90 mg/dL (65-115) 11/02/23 20:59 Calculated Osmolality 288 mOsm/kg (285-295) 11/02/23 20:59 Calcium 8.6 mg/dL (8.5-10.5) 11/02/23 20:59 Total Bilirubin 0.2 mg/dL (0.15-1.2) 11/02/23 20:59 AST 14 U/L (0-32) 11/02/23 20:59 ALT 8 U/L (0-33) 11/02/23 20:59 Alkaline Phosphatase 62 U/L (35-105) 11/02/23 20:59 Troponin T Baseline 8 ng/L (0-10) 11/02/23 20:59 Troponin T 120 Minute 6.00 ng/L (0-10) 11/02/23 22:40 Delta Troponin T -2.00 ABS# (0-10) L 11/02/23 22:40 Total Protein 6.6 g/dL (6.6-8.7) 11/02/23 20:59 Albumin 4.2 g/dL (3.5-5.2) 11/02/23 20:59 Globulin 2.4 g/dL (1.3-4.6) 11/02/23 20:59 Urine Color Yellow (Yellow) 11/02/23 21:45 Urine Appearance Hazy (CLEAR) A 11/02/23 21:45 Urine pH 5 (5-7) 11/02/23 21:45 Ur Specific [place] 1.030 (1.005-1.030) 11/02/23 21:45 Urine Protein Neg (Negative) 11/02/23 21:45 Urine Glucose (UA) Norm (Normal) 11/02/23 21:45 Urine Ketones Negative (Negative) 11/02/23 21:45 Urine Blood 3+ (Negative) H 11/02/23 21:45 Urine Nitrate Negative (Negative) 11/02/23 21:45 Urine Bilirubin Neg (Negative) 11/02/23 21:45 Urine Urobilinogen Neg mg/dL (Negative) 11/02/23 21:45 Ur Leukocyte Esterase Negative (Negative) 11/02/23 21:45 Urine RBC 5-10 /hpf (0-2) H 11/02/23 21:45 Urine WBC 0-4 /hpf (0-5) H 11/02/23 21:45 Ur Squamous Epith Cells 15-25 /hpf (0-5) H 11/02/23 21:45 Amorphous Sediment Not Reportable 11/02/23 21:45 Urine Bacteria 2+ /hpf (NONE) H 11/02/23 21:45 Urine Mucus 2+ /hpf 11/02/23 21:45 Urine Opiates Screen Negative ng/mL (Negative) 11/02/23 21:45 Ur Barbiturates Screen Negative ng/mL (Negative) 11/02/23 21:45 Ur Phencyclidine Scrn Negative ng/mL (Negative) 11/02/23 21:45 Ur Amphetamines Screen Negative ng/mL (Negative) 11/02/23 21:45 U Benzodiazepines Scrn Positive ng/mL (Negative) H 11/02/23 21:45 Urine Cocaine Screen Negative ng/mL (Negative) 11/02/23 21:45 U Marijuana (THC) Screen Positive ng/mL (Negative) H 11/02/23 21:45 Influenza Type A Ag negative (Negative) 11/02/23 21:37 Influenza Type B Ag negative (Negative) 11/02/23 21:37 All radiology interpretation(s) finalized by discharge EKG Data EKG 1: Interpretation: Twelve-lead EKG obtained at 2010 and reviewed at 2014 demonstrates sinus rhythm with a ventricular rate of 89, ID interval 144, QRS duration 81, QT 314, QTc [address] elevation or depression to demonstrate acute ischemia or infarction at present. EKG 2: Interpretation: Twelve-lead EKG obtained at 2115 reviewed at 2119 demonstrates sinus bradycardia with a ventricular rate of 55 bpm, ID interval 138, QRS duration 82, QT [address] elevation or depression to demonstrate acute ischemia or infarction. Discharge Plan Discharge Patient Disposition: Home Clinical Impression: Migraines Qualifiers: Migraine type: unspecified Status migrainosus presence: without status migrainosus Intractability: not intractable Qualified Code(s): G43.909 - Migraine, unspecified, not intractable, without status migrainosus Condition: Stable Prescriptions: No Action methadone [Methadose] 40 mg tablet,soluble 85 mg PO DAILY fluoxetine [Prozac] 40 mg capsule 80 mg PO DAILY Qty: 60 2RF tizanidine 4 mg tablet 4 mg PO Q6H PRN (Reason: muscle spasticity) Qty: 20 0RF Rx Instructions: do not exceed 3 doses per 24 hrs hydrocodone-acetaminophen 5-325 mg tablet 1 tab PO Q6H PRN (Reason: pain (scale score 7-10)) Qty: 10 0RF Discharge Orders: Discharge ED (Routine); Ordered 11/02/23 Ordered By: Ryan Horner Discharge Diet: Usual diet Discharge Activity: Resume usual activity Patient Instructions: Opioid Safety, Pain Management Activity Restrictions/Additional Instructions: Activity Restrictions/Additional Instructions: Thank you for choosing [facility] for your healthcare needs today. Please realize that you were seen in the Emergency Department and that we are providing you with an emergency medical screening exam and this may not be a complete and all inclusive of all the testing and or medical work-up that you may need to determine your ailment or severity of your illness. It is very important that you follow-up as instructed with your Primary care provider or Specialist for additional evaluation and to discuss your medical treatment plan. You may return to the Emergency Department should you have concerns or if your condition changes or worsens in any way. Coding Level of Care Code ED [place] [employer] Operator for Kalee Lopez
[2023-11-02 21:26] LABS: Troponin(5th) Baseline 8 ng/L (0-10)
[2023-11-02 21:28] LABS: Alanine Aminotransferase 8 U/L (0-33); Albumin Level 4.2 g/dL (3.5-5.2); Alkaline Phosphatase 62 U/L (35-105); Aspartate Amino Transferase 14 U/L (0-32); Blood Urea Nitrogen 8 mg/dL (6-20); Calcium 8.6 mg/dL (8.5-10.5); Carbon Dioxide 26 mmol/L (22-29); Chloride 104 mmol/L (98-107); Creatinine Clr Calc Pharmacy 105.2894; Globulin 2.4 g/dL (1.3-4.6); Glomerular Filtration Rate 97.6 mL/min (90-130); Glucose 90 mg/dL (65-115); Osmolality Calculated 288 mOsm/kg (285-295); Sodium 140 mmol/L (136-145); Total Bilirubin 0.2 mg/dL (0.15-1.2); Total Protein 6.6 g/dL (6.6-8.7)
[2023-11-02] MEDS: diphenhydrAMINE 50 mg/mL SDV 1mL IVP (21:56)
[2023-11-02] MEDS: ketorolac 30 mg/mL INJ IVP (21:56)
[2023-11-02] MEDS: sodium chloride 0.9% 1,000 ML 999 ML IV (21:56)
[2023-11-02] MEDS: metoclopramide 5 mg/mL SDV 2 mL 10 MG IVP (21:57)
[2023-11-02 22:05] LABS: Influenza A by IFA negative (Negative); Influenza B by IFA negative (Negative)
--- NOTE | 2023-11-02 22:15 | ECG_ITS ---
[facility] Test Date: 2023-11-02 Pat Name: Laurel Rodriguez Department: Room: Gender: Female Electronic Publishing Specialist: : 1990 Requested By: Bulmaro Glynn Order Number: [id number] Danuta MD: Jennifer Lombardi M.D. Measurements Intervals [place] Rate: 55 P: 18 CO: 138 QRS: 58 QRSD: 82 T: 48 QT: 446 QTc: 430 Interpretive Statements SINUS BRADYCARDIA WITH SINUS ARRHYTHMIA Compared to ECG 05/25/2019 23:38:33 Sinus rhythm no longer present Electronically Signed On 11-03-2023 23:17:53 CDT by Jennifer Lombardi M.D. [id number]
[2023-11-02 22:59] LABS: Amphetamines Screen Urine Negative (Negative); Barbiturates Screen Urine Negative (Negative); Benzodiazepines Screen Urine Positive (Negative); Cocaine Screen Urine Negative (Negative); Opiate Screen Urine Negative (Negative); PCP Screen Urine Negative (Negative); THC Screen Urine Positive (Negative)
[2023-11-02 23:00] LABS: Urine Appearance Hazy (CLEAR); Urine Color Yellow (Yellow)
[2023-11-02 23:01] LABS: Add Urine Culture? No; Add Urine Microscopic? YES; Bacteria Urine 2+ /hpf; Bilirubin Urine Neg (Negative); Blood Urine 3+ (Negative); Glucose Urine UA Norm (Normal); Ketones Urine Negative (Negative); Leukocyte Esterase Urine Negative (Negative); Mucus Urine 2+ /hpf; Nitrate Urine Negative (Negative); Protein Urine Neg (Negative); Squamous Epithelial Cell Urine 15-25 /hpf (0-5); Urobilinogen Urine Neg (Negative); WBC Urine 0-4 /hpf (0-5); pH Urine 5 (5-7)
== END 2023-11-02 22:55 | disposition home or self-care (01) ==
PROVIDERS: Emergency Medicine; Emergency Provider Internal Medicine
DX: G43.909 Migraine, unspecified, not intractable, without status migrainosus (principal); Z79.891 Long term (current) use of opiate analgesic; Z72.0 Tobacco use
CPT/HCPCS: 36415; 71045; 80053; 80306; 81001; 84484; 85025; 87804; 93005; 96374; 96375; 99285; J1200; J1885; J2765; J7030